=== PATIENT | female | born 1950 | race Caucasian/White ===

== ENCOUNTER 2022-03-14 10:00 | Outpatient (REF) | payer MEDICARE, SELFPAY ==
[2022-03-14 11:30] LABS: Anion Gap 11 (12-20); Blood Urea Nitrogen 21 mg/dL (9-16); Calcium 9.7 mg/dL (8.4-10.2); Carbon Dioxide 29 mmol/L (22-29); Chloride 103 mmol/L (96-108); Estimated Glomerular Filt Rate > 60; Glucose Random 104 mg/dL (60-115); Potassium 4.2 mmol/L (3.3-5.1); Sodium 139 mmol/L (135-145)
== END 2022-03-14 10:01 | disposition home or self-care (01) ==
LOC: HO.HMGCLDS 10:00
PROVIDERS: PCP Internal Medicine; Visit Provider Internal Medicine
DX: I10 Essential (primary) hypertension (principal); Z98.890 Other specified postprocedural states; Z92.89 Personal history of other medical treatment
CPT/HCPCS: 36415; 80048

== ENCOUNTER 2022-04-15 12:23 | Outpatient (REF) | payer MEDICARE, SELFPAY ==
--- NOTE | ~2022-04-15 | XR_ITS ---
EXAMINATION: BILATERAL KNEE STANDING AND LEFT KNEE. CLINICAL INFORMATION: Pain. COMPARISON: None TECHNIQUE: AP bilateral knee standing. Left knee 2 views. FINDINGS: AP bilateral knee: There is a total right knee prosthesis. There is severe loss of medial and mild to moderate loss of lateral compartment joint space left knee. There is mild periarticular spurring medial compartment left knee. The right knee is slightly higher in position compared to left knee. Left knee: There is moderate loss of medial compartment joint space left knee with moderate periarticular spurring. There is no abnormal joint effusion. No loose body seen. XR/XR knee LT 2V IMPRESSION: 1. Total right knee prosthesis in satisfactory alignment. There is severe loss of medial compartment joint space with periarticular spurring. 2. There is mild to moderate loss of lateral compartment joint space left knee. 3. Severe degenerative changes patellofemoral compartment with moderate periarticular spurring.
--- NOTE | ~2022-04-15 | XR_ITS ---
EXAMINATION: BILATERAL KNEE STANDING AND LEFT KNEE. CLINICAL INFORMATION: Pain. COMPARISON: None TECHNIQUE: AP bilateral knee standing. Left knee 2 views. FINDINGS: AP bilateral knee: There is a total right knee prosthesis. There is severe loss of medial and mild to moderate loss of lateral compartment joint space left knee. There is mild periarticular spurring medial compartment left knee. The right knee is slightly higher in position compared to left knee. Left knee: There is moderate loss of medial compartment joint space left knee with moderate periarticular spurring. There is no abnormal joint effusion. No loose body seen. XR/XR knee standing BI IMPRESSION: 1. Total right knee prosthesis in satisfactory alignment. There is severe loss of medial compartment joint space with periarticular spurring. 2. There is mild to moderate loss of lateral compartment joint space left knee. 3. Severe degenerative changes patellofemoral compartment with moderate periarticular spurring.
== END 2022-04-15 12:24 | disposition home or self-care (01) ==
LOC: HO.HOSX 12:23
PROVIDERS: Visit Provider Orthopaedic Surgery
DX: M17.12 Unilateral primary osteoarthritis, left knee (principal)
CPT/HCPCS: 73560; 73565; 99202

== ENCOUNTER → 2022-06-12 12:47 | Outpatient (BNVA) | payer MEDICARE, SELFPAY | PROVIDERS: PCP Internal Medicine; Visit Provider Orthopaedic Surgery | DX: Z01.812 Encounter for preprocedural laboratory examination (principal) ==

== ENCOUNTER 2022-06-19 12:33 | Outpatient (REF) | payer MEDICARE, SELFPAY ==
[2022-06-19 14:00] LABS: MANUAL DIFF FLAG NO
[2022-06-19 14:09] LABS: Basophils Percent Auto 0.3 % (0-2); Eosinophils Absolute Auto 0.1 X10*3/uL (0.0-0.4); Eosinophils Percent Auto 2.2 % (0-4); Hematocrit 42.8 % (37.0-47.0); Imm Gran Abs Auto 0.01 X10*3/uL (0.00-0.03); Imm Gran Pct Auto 0.2 % (0.0-0.4); Lymphocytes Percent Auto 33.7 % (20-40); Mean Corpuscular HGB Conc 32.7 g/dl (31.0-35.0); Mean Corpuscular Hemoglobin 27.3 pg (27.0-33.0); Mean Corpuscular Volume 83.4 fL (80.0-98.0); Mean Platelet Volume 10.4 fL (9.4-12.3); Monocytes Absolute Auto 0.6 X10*3/uL (0.1-1.2); Monocytes Percent Auto 9.4 % (2-11); Neutrophils Absolute Auto 3.2 x10*3/uL (2.0-8.3); Neutrophils Percent Auto 54.2 % (45-73); Platelet Count 334 X10*3/uL (160-400); Red Blood Count 5.13 X10*6/uL (4.20-5.50); Red Cell Distribution Width 13.7 % (11.0-16.0); White Blood Count 5.9 X10*3/uL (4.8-10.8)
[2022-06-19 14:35] LABS: Alanine Aminotransferase 16 U/L (0-31); Albumin Level 4.3 g/dL (3.5-5.0); Alkaline Phosphatase 93 U/L (39-117); Anion Gap 14 (12-20); Aspartate Amino Transferase 26 U/L (5-31); Bilirubin Total 0.6 mg/dL (0.0-1.0); Blood Urea Nitrogen 15 mg/dL (9-16); Calcium 9.9 mg/dL (8.4-10.2); Carbon Dioxide 28 mmol/L (22-29); Chloride 104 mmol/L (96-108); Cholesterol 201 mg/dL; Estimated Glomerular Filt Rate > 60; Glucose Fasting 89 mg/dL (60-99); HDL Cholesterol 74 mg/dL; LDL Cholesterol Calculated 118 mg/dl; Potassium 4.7 mmol/L (3.3-5.1); Sodium 141 mmol/L (135-145); Total Protein 7.4 g/dL (6.5-8.0); Triglycerides 48 mg/dL
[2022-06-19 14:51] LABS: TSH reflex Free T4 2.22 uIU/mL (0.32-4.0)
== END 2022-06-19 12:34 | disposition home or self-care (01) ==
LOC: HO.HMGCLDS 12:33
PROVIDERS: PCP Internal Medicine; Visit Provider Internal Medicine
DX: I10 Essential (primary) hypertension (principal); E55.9 Vitamin D deficiency, unspecified; Z78.0 Asymptomatic menopausal state
CPT/HCPCS: 36415; 80053; 80061; 82306; 84443; 85025

== ENCOUNTER → 2022-07-05 09:14 | Outpatient (REF) | payer MEDICARE, SELFPAY ==
--- NOTE | ~2022-07-05 | NM_ITS ---
Dobutamine Myocardial perfusion study Indication: Preoperative cardiovascular risk stratification Technique: The patient was brought in for an dobutamine perfusion study on 07/05/2022. Patient performed testing as per dobutamine protocol and was injected 35 mCi of sestamibi was given intravenously one target HR was achieved. Images were obtained using the SPECT gamma camera interlaced with the gating device. Images were obtained in supine position. Resting perfusion study was performed on 07/09/2022. Patient was administered 35 mCi of sestamibi intravenously at rest. Images were then obtained in supine position. Images obtained with and without CT attenuation. Total DLP 114 mGy-cm. Images were processed with the software and compared side to side in short axis, horizontal long axis and vertical long axis views. Findings: The stress perfusion study showed non attenuated images show mildly reduced uptake in a small area of apex of the LV myocardium. Remainder of the LV myocardium is normally perfused. Attenuation corrected images show minimally reduced uptake in the apex of the LV myocardium. The gated study shows normal LV systolic function with calculated LVEF of 60%. LV cavity is normal in size. The gated study shows normal systolic wall thickening and contraction of all segments. There is no transient ischemic dilation. Resting study shows non attenuated images show no change in perfusion pattern compared to stress perfusion study. Gating at rest reveals systolic wall motion with ejection fraction at 59%. The findings are consistent with normal myocardial perfusion. NM/NM hermes perf SPECT rest & str Impression: 1. Normal myocardial perfusion 2. Gated LVEF is 60% 3. Transient ischemic dilatation not present Stress EKG is negative for ischemia
--- NOTE | 2022-07-05 09:35 | CA_ITS ---
Acquisition Time: 2022-07-05 09:22:34 Total Exercise Time: 00:07:08 Test Indications: Abnormal ECG Medications: AMLODIPINE INDAPAMIDE Protocol: DOBUTAMINE Max HR: 130 BPM 86% of Pred: 150 BPM Max BP: 142/086 mmHG Max Work Load: 1.0 METS Pharmacological stress test with Dobutamine infusion to max ot 10mcg/kg/min, achieving 87% MPHR, without anginal symptoms, without arrythmia, with normotensive response to infusion, without EKG changes meeting criteria for ischemia. Nuclear images pending. Test reivewed [facility] Dr Rodgers Referred By: Eloisa Valdes Overread By: KULDEEP ROB
--- NOTE | 2022-07-05 15:00 | CA_ITS ---
Transthoracic Echocardiogram Patient (Last, First, Middle): Shannan Harvey L Gender: Female Date of : 1950 Age: 72 Procedure Date: 07/05/2022 Procedure Type: Transthoracic Echocardiogram Location: OP Height: 160.02 cm Weight: 90.72 kg BSA: 1.93 m2 Heart Rate: bpm BP: 130 / 88 mmHg Personal Care Aide: TO Referring MD: Eloisa Valdes MD Analyst Business Analysis: Margarito Rodgers MD Symptoms: R94.31 - Abnormal electrocardiogram [ECG] [EKG] Study Quality: Fair/Contrast ECG Rhythm: Sinus Conclusions: - 1. Normal LV systolic function with impaired relaxation filling pattern 2. Trivial aortic regurgitation 3. Normal RV systolic pressure 4. No gross pericardial effusion Findings Procedure Information Contrast agent, definity, is being given per protocol without apparent complications. Left Ventricle Normal left ventricular size, thickness, and systolic function. The visually estimated ejection fraction is between 60-65%. Spectral Doppler is indicative of an impaired relaxation filling pattern. E/E prime ratio is between 8 and 15 consistent with indeterminate filling pressures. Right Ventricle Normal right ventricular cavity size and systolic function. Atria The left atrium is normal in size. Interatrial shunt cannot be excluded. The right atrium is normal in size. Aortic Valve There is mild calcification of the aortic valve. There is no aortic valve stenosis. There is trace (trivial) aortic valve regurgitation. Mitral Valve Normal mitral valve structure and function. There is trace mitral valve regurgitation. There is no mitral valve stenosis. Pulmonic Valve The pulmonic valve is likely normal. Tricuspid Valve Normal tricuspid valve structure. There is trace tricuspid valve regurgitation. The right ventricular systolic pressure is normal. The right ventricular systolic pressure is 32 mmHg. Normal right atrial pressure. There is no evidence of pulmonary hypertension. Great Vessels All visible segments of the aorta are normal in size. The pulmonary artery was not well visualized. Venous The inferior vena cava is normal in size and collapses greater than 50% with inspiration. Pericardium/Pleural There is no evidence of pericardial effusion. Prior Study Comparison No prior study available for comparison. Measurements 2D Linear Measurements IVSd: 0.88 0.6-0.9/0.6-1.0 cm LVIDd: 4.55 3.9-5.3/4.2-5.9 cm LVIDd Index: 2.36 2.4-3.2/2.2-3.1 cm/m2 LVIDs: 2.68 2.0-3.6 cm LVPWd: 0.79 0.7-1.1 cm LA Diam: 3.10 2.7-3.8/3.0-4.0 cm LAIDs Index: 1.61 1.5-2.3 cm/m2 LV Mass: 152.42 67-162/88-224 g LV Mass Index: 78.98 43-95/49-115 g/m2 LVOT Diam: 2.00 3.0+(-)1.3 cm 2D Systolic Function EF 4C: 58.10 >55% Mitral Valve MV Pk E: 0.72 MV PK A: 0.95 MV Decel Time: 234.00 E/A: 0.80 E'Lateral: 7.51 E'Medial: 6.20 E/E' Med: 11.50 E/E' Lat: 9.50 PHT: 69.00 MVA PHT: 3.19 Decel [place]: 3.06 Aortic Valve AoV Pk Raúl: 1.77 AoV Mn Raúl: 1.18 AoV VTI: 0.33 AoV Pk Grad: 13.00 Aov Mn Grad: 6.00 KALANI Cont.VTI: 2.39 LVOT LVOT Pk Raúl: 1.17 LVOT Mn Raúl: 0.76 LVOT VTI: 0.25 LVOT Pk Grad: 5.00 LVOT Mn Grad: 3.00 LVOT Diam: 2.00 LVOT Area: 3.14 Diastolic Function MV Pk E: 0.72 MV Pk A: 0.95 E/A: 0.80 E'Medial: 6.20 E/E' Med: 11.50 E' Laterial: 7.51 E/E' Lat: 9.50 Right Ventricle TAPSE (mm): 18.80 TVS' Raúl: 12.20 Tricuspid Valve TR Pk Raúl: 2.67 TR Pk Grad: 29.00 RA Press: 3.00 RVSP: 32.00 Great Vessels Aorta Sinus of Valsalva: 2.93 2.0-3.[address] [place]: 2.30 1.7-3.4 cm Ao Asc: 3.20 2.1-3.4 cm Updated in Other Vendor System with Status of Final Margarito Rodgers MD electronically signed on 07/06/2022 12:51:31 PM with status of Final
== END ==
LOC: HO.CARD 09:14
PROVIDERS: PCP Internal Medicine; Visit Provider Internal Medicine
DX: Z01.818 Encounter for other preprocedural examination (principal); R94.31 Abnormal electrocardiogram [ECG] [EKG]
CPT/HCPCS: 78452; 93017; 93306; A9500; J1250; Q9957

== ENCOUNTER 2022-07-11 12:38 | Outpatient (REF) | payer MEDICARE, SELFPAY ==
--- NOTE | ~2022-07-11 | XR_ITS ---
EXAMINATION: X-ray right knee CLINICAL INFORMATION: Pain COMPARISON: X-ray 04/15/2022 TECHNIQUE: 1 lateral radiograph right knee FINDINGS: Total knee arthroplasty present. On the single view, the arthroplasty components appear well seated. No findings to suggest hardware failure. No acute fracture. No significant joint effusion. XR/XR knee RT 1V IMPRESSION: Status post total knee arthroplasty. No acute findings seen.
== END 2022-07-11 12:39 | disposition home or self-care (01) ==
LOC: HO.HOSX 12:38
PROVIDERS: PCP Internal Medicine; Visit Provider Physician Assistant
DX: Z01.818 Encounter for other preprocedural examination (principal); M25.561 Pain in right knee; M17.12 Unilateral primary osteoarthritis, left knee; Z96.651 Presence of right artificial knee joint; Z79.899 Other long term (current) drug therapy
CPT/HCPCS: 73560; 99212

== ENCOUNTER → 2022-07-16 | Day surgery (SDC) | payer MEDICARE, SELFPAY ==
[2022-07-09 12:00] VITALS: BP 136/65; PULSE 65; RESP 16; O2SAT 96; BMI 36.1
--- NOTE | 2022-07-09 12:23 | HO.ANESPROP2 ---
HPI - Anesthesia Eval Consult details Narrative: Cx'd DOS d/t Covid + 72yo F for Left Total Knee Replacement 07/16/22 [facility] Active Problems Active Problems: All Active Problems (Updated 07/03/22 @ 14:11 by Eloisa Valdes MD) Knee osteoarthritis (Acute) History of uterine prolapse (Acute) Hx of screening mammography (Acute) Hx of colonoscopy (Acute) Postmenopausal (Acute) Vitamin D deficiency (Acute) Osteoarthritis of left knee (Acute) Abnormal EKG (Acute) Pre-op evaluation (Acute) Hypertension (Acute) Past Medical History Medical History Carpal tunnel syndrome Hypertension Family History Family History Father No problems noted. Mother Colon cancer Family history of problems with anesthesia: No Surgical History Surgical History History of total right knee replacement Hx of colonoscopy Hx of hysterectomy S/P right rotator cuff repair Status post carpal tunnel release of both wrists History of Problems with Anesthesia: No Social History Social History Household Members Other:: lives alone, 3 adults sons, works partime Housing: House Are you a primary senior resident care director to a significant other at home: No Do you presently have visiting nurse or other home services: No Patient Tobacco Use Status: Never used Tobacco e-Cigarette/Vaping Use: Never Used service: No Current occupational status: retired Cognitive needs: No Hearing needs: No Vision needs: Yes Narrative Narrative: No recent illness No CP/SOB Meds Allergies Allergy/AdvReac Type Severity Reaction Status Date / Time Seasonal Allergies Allergy Mild Sneezing, Verified 07/11/22 12:45 coughing Home Medications Medication Instructions Recorded Confirmed Last Taken Type cholecalciferol (vitamin D3) 50 50 mcg PO DAILY 07/09/22 07/11/22 07/15/22 History mcg (2,000 unit) capsule (Vitamin D3) indapamide 1.25 mg tablet 1.25 mg PO DAILY 07/16/22 07/16/22 07/15/22 History Exam Exam Date and Time: July 09, 2022 1223 Height,Weight and Vital Signs: Height 5 ft 3 in Weight 92.4 kg Last Vital Signs Pulse 65 07/09/22 12:00 Resp 16 07/09/22 12:00 BP 136/65 07/09/22 12:00 Pulse Ox 96 07/09/22 12:00 O2 Del Method Room Air 07/09/22 12:00 Narrative Narrative: EKG 06/2022 SB @ 59 ? anterior infarct ECHO 06/2022 Conclusions: - 1. Normal LV systolic function with impaired relaxation filling pattern? 2. Trivial aortic regurgitation? 3. Normal RV systolic pressure ? 4. No gross pericardial effusion ? NM hermes perf SPECT rest & str 06/2022 Impression: ? 1.? Normal myocardial perfusion 2.? Gated LVEF is 60% 3. Transient ischemic dilatation not present ? Stress EKG is negative for ischemia Airway Mallampati Class: II TM Dist: >3cm Neck ROM: Full Denture: Upper Partial: Lower Heart: RRR Lungs: CTA Assessment and Plan Assessment Anesthesia Assessment: Anesthesia Plan Discussed and PAT Visit Final Anesthetic Review Family History of Problems with Anesthesia: No History of Problems with Anesthesia: No
[2022-07-09 15:00] LABS: MRSA Nasal PCR NEGATIVE (Negative); SA Nasal PCR NEGATIVE (Negative)
[2022-07-16 06:15] VITALS: BP 159/51; PULSE 69; RESP 20; TEMP 36.3; O2SAT 97
[2022-07-16 06:29] LABS: Hematocrit 43.5 % (37.0-47.0); Hemoglobin 14.1 g/dl (12.0-16.0)
[2022-07-16 06:33] LABS: COVID-19 Test Positive (Negative); IDNOW Serial# 16C4AD1C
[2022-07-16] MEDS: Lactated Ringers 1,000 ML 100 ML IVCONT (06:42)
--- NOTE | 2022-07-16 07:00 | PC.NURSE ---
pt positive covid procedure cancelled per dr muñoz and dr carranza pt aware of new careplan
--- NOTE | 2022-07-16 07:02 | PHA.MEDREC ---
Pharmacy Consult ? Medication Reconciliation Pharmacy has completed the medication reconciliation. Reviewed med rec done by nursing
== END ==
LOC: HO.SSSA 07:45 → HO.SSS 16:33
PROVIDERS: Physician Assistant; PCP Internal Medicine; Visit Provider Orthopaedic Surgery
DX: M17.12 Unilateral primary osteoarthritis, left knee (principal); Z53.09 Procedure and treatment not carried out because of other contraindication; U07.1 COVID-19; Z20.822 Contact with and (suspected) exposure to COVID-19
CPT/HCPCS: 36415; 85014; 85018; 86850; 86900; 86901; 87635; 87640; 87641; J0690

== ENCOUNTER 2022-07-30 06:25 | Inpatient (IN) | payer MEDICARE, SELFPAY ==
--- NOTE | 2022-07-29 09:14 | HO.ANESPROP2 ---
Documented by User: Claire Mckeon NP 07/29/22 09:15 HPI - Anesthesia Eval Consult details Narrative: 72yo F for Left Total Knee Replacement 07/16/22 PCP cleared Previously cx'd d/t COVID+ [facility] Active Problems Active Problems: All Active Problems (Updated 07/03/22 @ 14:11 by Eloisa Valdes MD) Knee osteoarthritis (Acute) History of uterine prolapse (Acute) Hx of screening mammography (Acute) Hx of colonoscopy (Acute) Postmenopausal (Acute) Vitamin D deficiency (Acute) Osteoarthritis of left knee (Acute) Abnormal EKG (Acute) Pre-op evaluation (Acute) Hypertension (Acute) Past Medical History Medical History Carpal tunnel syndrome Hypertension Family History Family History Father No problems noted. Mother Colon cancer Family history of problems with anesthesia: No Surgical History Surgical History History of total right knee replacement Hx of colonoscopy Hx of hysterectomy S/P right rotator cuff repair Status post carpal tunnel release of both wrists History of Problems with Anesthesia: No Social History Social History Household Members Other:: lives alone, 3 adults sons, works partime Housing: House Are you a primary healthcare administration intern to a significant other at home: No Do you presently have visiting nurse or other home services: No Patient Tobacco Use Status: Never used Tobacco e-Cigarette/Vaping Use: Never Used Use of substances other than those prescribed or required for medical reasons: No Are you DNR?: No Advance Directives: No Advance Directives Information Provided: No Advance Directives on File: No service: No Current occupational status: retired Cognitive needs: No Hearing needs: No Vision needs: Yes Meds Allergies Allergy/AdvReac Type Severity Reaction Status Date / Time Seasonal Allergies Allergy Mild Sneezing, Verified 07/11/22 12:45 coughing Home Medications Medication Instructions Recorded Confirmed Last Taken Type cholecalciferol (vitamin D3) 50 50 mcg PO DAILY 07/09/22 07/30/22 07/29/22 History mcg (2,000 unit) capsule (Vitamin D3) indapamide 1.25 mg tablet 1.25 mg PO DAILY 07/16/22 07/30/22 07/29/22 History Exam Exam Date and Time: July 29, 2022913 Height,Weight and Vital Signs: Height 5 ft 3 in Weight 92.4 kg Last Vital Signs Pulse 65 07/09/22 12:00 Resp 16 07/09/22 12:00 BP 136/65 07/09/22 12:00 Pulse Ox 96 07/09/22 12:00 O2 Del Method Room Air 07/09/22 12:00 Pertinent Lab Results Pertinent Lab Results: Laboratory Tests 06/19/22 06/19/22 07/16/22 12:44 12:44 06:23 WBC 5.9 Hgb 14.1 Hct 43.5 Plt Count 334 Sodium 141 Potassium 4.7 Chloride 104 Carbon Dioxide 28 BUN 15 Creatinine 0.87 Narrative Narrative: EKG 06/2022 SB @ 59 ? anterior infarct ECHO 06/2022 Conclusions: - 1. Normal LV systolic function with impaired relaxation filling pattern? 2. Trivial aortic regurgitation? 3. Normal RV systolic pressure ? 4. No gross pericardial effusion ? NM hermes perf SPECT rest & str 06/2022 Impression: ? 1.? Normal myocardial perfusion 2.? Gated LVEF is 60% 3. Transient ischemic dilatation not present ? Stress EKG is negative for ischemia Airway Mallampati Class: II TM Dist: >3cm Neck ROM: Full Denture: Upper Partial: Lower Heart: RRR Lungs: CTA Assessment and Plan Assessment Anesthesia Assessment: Chart Reviewed Final Anesthetic Review Family History of Problems with Anesthesia: No History of Problems with Anesthesia: No Documented by User: Alysa Orellana MD 07/30/22 08:47 [facility] Past Medical History Medical History Carpal tunnel syndrome Hypertension Family History Family History Father No problems noted. Mother Colon cancer Surgical History Surgical History History of total right knee replacement Hx of colonoscopy Hx of hysterectomy S/P right rotator cuff repair Status post carpal tunnel release of both wrists Social History Social History Household Members Other:: lives alone, 3 adults sons, works partime Housing: House Are you a primary healthcare administration intern to a significant other at home: No Do you presently have visiting nurse or other home services: No Patient Tobacco Use Status: Never used Tobacco e-Cigarette/Vaping Use: Never Used Use of substances other than those prescribed or required for medical reasons: No Are you DNR?: No Advance Directives: No Advance Directives Information Provided: No Advance Directives on File: No service: No Current occupational status: retired Cognitive needs: No Hearing needs: No Vision needs: Yes Meds Allergies Allergy/AdvReac Type Severity Reaction Status Date / Time Seasonal Allergies Allergy Mild Sneezing, Verified 07/11/22 12:45 coughing Home Medications Medication Instructions Recorded Confirmed Last Taken Type cholecalciferol (vitamin D3) 50 50 mcg PO DAILY 07/09/22 07/30/22 07/29/22 History mcg (2,000 unit) capsule (Vitamin D3) indapamide 1.25 mg tablet 1.25 mg PO DAILY 07/16/22 07/30/22 07/29/22 History Assessment and Plan Final Anesthetic Review NPO: Yes ASA Class: III Final Preanesthetic Review: No Changes in Pt Med Stat, Meds/Allgs Chart Reviewed, Consent Obtained/Reviewed and Anes Risks/Benef Reviewed Patient Risk: Intermediate Procedure Risk: Intermediate Anesthetic Plan Anesthetic Plan: Spinal Disposition: Standard PACU
[2022-07-30] VITALS (13 sets, daily range): BP systolic 108–144; BP diastolic 52–80; PULSE 53–79; RESP 15–20; TEMP 36.1–36.9; O2SAT 93–98; BMI 35.4
--- NOTE | ~2022-07-30 | XR_ITS ---
EXAMINATION: XR KNEE, LEFT CLINICAL INFORMATION: Left knee replacement COMPARISON: Previous x-ray March 2022 TECHNIQUE: 2 views of the left knee. FINDINGS: There is a 3 component left knee replacement in satisfactory position. No fracture or dislocation. There are postoperative changes to the soft tissues. XR/XR knee LT 2V IMPRESSION: Satisfactory appearance of left knee replacement.
[2022-07-30] MEDS: Lactated Ringers 1,000 ML 100 ML IVCONT ×3 (06:41→20:26)
[2022-07-30 06:49] LABS: Hematocrit 38.9 % (37.0-47.0); Hemoglobin 12.9 g/dl (12.0-16.0)
--- NOTE | 2022-07-30 07:19 | PHA.MEDREC ---
Pharmacy Consult ? Medication Reconciliation Pharmacy has completed the medication reconciliation. Completed by RN reviewed by pharmacy Dale
--- NOTE | 2022-07-30 09:50 | PM.OP ---
Brief Operative Note Date of Service: 07/30/22 Pre-op diagnosis: Left knee OA Post-op diagnosis: same Procedure: Left TKA Implants: Rossi Triathlon posterior stabilized cemented 06/26/15ps/32a Surgeon: Naveen Villa MD Anesthesia: GETA and regional Was an Camera Storage Clerk used for this Procedure?: Yes Camera Storage Clerk: Naomy Hall Estimated blood loss (mL): 175 IV fluids (mL): 1,000 Pathology: other Condition: stable Disposition: PACU
[2022-07-30] MEDS: HYDROmorphone HCl 0.5 MG/0.5 ML SYRINGE 0.25 MG IVPUSH ×3 (11:54→21:31)
[2022-07-30] MEDS: Acetaminophen 325 MG TABLET 650 MG PO ×2 (11:55→21:30)
[2022-07-30] MEDS: oxyCODONE HCl Immed Release 5 MG TABLET PO ×2 (12:50→13:57)
--- NOTE | 2022-07-30 13:01 | HO.PM.IMCN ---
History of Present Illness Data of Consult Service Date: 07/30/22 Requesting physician: Naomy Hall Primary Care Provider: Eloisa Valdes MD HPI Reason for consult: medical management 72-year-old female with history of hypertension admitted to Orthopedic surgery for management of osteoarthritis of the left knee s/p TKA with consult placed to Hospital Medicine for medical management. She reports taking her amlodipine 5 mg this morning but did not take her indapamide at the recommendation of her surgeon. Blood pressures have been stable postoperatively, no hypotension. She is complaining of pain in the knee but has no other complaints at this time. She reports drinking alcohol occasionally, no cigarette smoking, no illicit drug use. No other complaints at this time. Review of Systems Review of Systems: General: No fevers, malaise, unintentional weight loss HEENT: No blurred vision, diplopia. No sore throat, nasal congestion, rhinorrhea, sinus pain, ear pain Cardiovascular: No chest pain, palpitations, or leg edema Respiratory: No shortness of breath, wheezing, cough GI: No abdominal pain, nausea, vomiting, diarrhea, constipation, melena, hematochezia : No dysuria, hematuria, increased urinary frequency, decreased urinary output MSK: No myalgia, back pain. +left knee pain Neuro: No headaches, weakness, paresthesias Skin: No rashes or lesions [facility] Medical History Carpal tunnel syndrome Hypertension Family History Father No problems noted. Mother Colon cancer Surgical History History of total right knee replacement Hx of colonoscopy Hx of hysterectomy S/P right rotator cuff repair Status post carpal tunnel release of both wrists Social History Household Members Other:: lives alone, 3 adults sons, works partime Housing: House Are you a primary client care specialist to a significant other at home: No Do you presently have visiting nurse or other home services: No Patient Tobacco Use Status: Never used Tobacco e-Cigarette/Vaping Use: Never Used Use of substances other than those prescribed or required for medical reasons: No Are you DNR?: No Advance Directives: No Advance Directives Information Provided: No Advance Directives on File: No service: No Current occupational status: retired Cognitive needs: No Hearing needs: No Vision needs: Yes Meds Allergies Allergy/AdvReac Type Severity Reaction Status Date / Time Seasonal Allergies Allergy Mild Sneezing, Verified 07/11/22 12:45 coughing Active Medications: Current Medications Acetaminophen (Acetaminophen 325 Mg Tablet) 650 mg PO Q6H PRN PRN Reason: Pain, Mild (Pain Scale 1-3) Last Admin: 07/30/22 11:55 Dose: 650 mg Aspirin (Aspirin 325 Mg Tablet) 325 mg PO BID [facility] Celecoxib (Celecoxib 200 Mg Capsule) 200 mg PO BID [facility] Docusate Sodium (Docusate Sodium 100 Mg Capsule) 100 mg PO BID [facility] Hydromorphone HCl (Hydromorphone Hcl 0.5 Mg/0.5 Ml Syringe) 0.25 mg IVPUSH Q4H PRN; Protocol PRN Reason: Pain, Severe (Pain Scale 7-10) Last Admin: 07/30/22 11:54 Dose: 0.25 mg Lactated Ringer's (Lr) 1,000 mls @ 100 mls/hr IVCONT .Q10H JOSEPH Stop: 07/31/22 10:06 Last Admin: 07/30/22 11:54 Dose: 100 mls/hr Cefazolin Sodium/Dextrose (Ancef) 2 gm in 50 mls @ 100 mls/hr IV POSTOP ONE Stop: 07/30/22 14:29 Ondansetron HCl (Ondansetron Hcl 4 Mg/2 Ml Vial) 4 mg IVPUSH Q8H PRN PRN Reason: Nausea and Vomiting Oxycodone HCl (Oxycodone Hcl Immed Release 5 Mg Tablet) 5 mg PO Q4H PRN PRN Reason: Pain, Moderate(Pain Scale 4-6) Last Admin: 07/30/22 12:50 Dose: 5 mg Oxycodone HCl (Oxycodone Hcl Er 10 Mg Tab.Er.12h) 10 mg PO BID [facility] Sodium Chloride (0.9 % Sodium Chloride Flush 3 Ml Syringe) 3 ml IVFLUSH QSHIFT [facility] Home Medications Medication Instructions Recorded Confirmed Last Taken Type cholecalciferol (vitamin D3) 50 50 mcg PO DAILY 0407/30/22 07/29/22 History mcg (2,000 unit) capsule (Vitamin D3) indapamide 1.25 mg tablet 1.25 mg PO DAILY 07/16/22 07/30/22 07/29/22 History Physical Exam Vital Signs and Narrative: Vital Signs: Last Vital Signs Temp 97 F 07/30/22 11:29 Pulse 73 07/30/22 11:29 Resp 18 07/30/22 11:29 BP 137/62 07/30/22 11:29 Pulse Ox 95 07/30/22 11:29 O2 Del Method Room Air 07/30/22 11:29 BMI result Body Mass Index 35.4 Constitutional - Awake and Alert, No apparent distress Eyes - PERRLA, EOMI Cardiovascular - S1S2, RRR, No edema Respiratory - Normal lung expansion, Normal respiratory effort, No respiratory distress, CTA bilaterally Gastrointestinal - NT / ND; +BS; No rebound or guarding Extremities - no calf tenderness bilaterally, no swelling Skin - Warm/Dry Neurological - Alert & oriented x3 Psychological - Appropriate affect Results Labs 07/30/22 06:32 Labs: Laboratory Results - last 24 hr 07/30/22 06:32 Blood Type O Positive Antibody Screen NEGATIVE Imaging Radiologist's Impressions: Impressions Knee X-Ray 07/30/22 10:27 IMPRESSION: Satisfactory appearance of left knee replacement. Assessment and Plan (1) Knee osteoarthritis: Status: Acute Plan 72-year-old female with history of hypertension admitted to Orthopedic surgery for management of osteoarthritis of the left knee s/p TKA with consult placed to Hospital Medicine for medical management. #Left knee osteoarthritis s/p left TKA POD 0 -plan per orthopedic surgery #HTN- bps reasonably controlled -Continue amlodipine. Resume indapamide on dc -monitor bps Thank you for allowing me to participate in this consult. Signing off at this time. Please do not hesitate to call for further questions. Time Spent With Patient Time: Total time managing care of this patient today ____ minutes.
[2022-07-30] MEDS: ceFAZolin Sodium/Dextrose,Iso 2 GM/50 ML PIGGYBACK IV (13:59)
[2022-07-30] MEDS: Docusate Sodium 100 MG CAPSULE PO (20:25)
[2022-07-30] MEDS: oxyCODONE HCl ER 10 MG TAB.ER.12H PO (20:25)
[2022-07-30] MEDS: Celecoxib 200 MG CAPSULE PO (20:25)
[2022-07-30] MEDS: 0.9 % Sodium Chloride Flush 3 ML SYRINGE IVFLUSH (20:26)
[2022-07-31 03:27] VITALS: BP 142/65; PULSE 65; RESP 18; TEMP 36.5; O2SAT 93
[2022-07-31] MEDS: HYDROmorphone HCl 0.5 MG/0.5 ML SYRINGE 0.25 MG IVPUSH (05:15)
[2022-07-31 06:15] LABS: MANUAL DIFF FLAG NO
[2022-07-31 06:24] LABS: Basophils Percent Auto 0.1 % (0-2); Hematocrit 33.1 % (37.0-47.0); Hemoglobin 10.9 g/dl (12.0-16.0); Imm Gran Abs Auto 0.05 X10*3/uL (0.00-0.03); Imm Gran Pct Auto 0.4 % (0.0-0.4); Lymphocytes Absolute Auto 1.4 X10*3/uL (1.2-4.9); Lymphocytes Percent Auto 12.8 % (20-40); Mean Corpuscular HGB Conc 32.9 g/dl (31.0-35.0); Mean Corpuscular Hemoglobin 27.3 pg (27.0-33.0); Mean Platelet Volume 9.7 fL (9.4-12.3); Monocytes Absolute Auto 1.1 X10*3/uL (0.1-1.2); Monocytes Percent Auto 10.3 % (2-11); Neutrophils Absolute Auto 8.5 x10*3/uL (2.0-8.3); Neutrophils Percent Auto 76.4 % (45-73); Platelet Count 242 X10*3/uL (160-400); Red Blood Count 3.99 X10*6/uL (4.20-5.50); Red Cell Distribution Width 13.8 % (11.0-16.0); White Blood Count 11.1 X10*3/uL (4.8-10.8)
[2022-07-31] MEDS: oxyCODONE HCl Immed Release 5 MG TABLET 10 MG PO ×3 (06:25→17:04)
[2022-07-31 06:40] LABS: Anion Gap 11 (12-20); Blood Urea Nitrogen 17 mg/dL (9-16); Calcium 8.9 mg/dL (8.4-10.2); Carbon Dioxide 26 mmol/L (22-29); Chloride 105 mmol/L (96-108); Creatinine Clr Calc Pharmacy 73.6; Estimated Glomerular Filt Rate > 60; Glucose Fasting 123 mg/dL (60-99); Potassium 4.1 mmol/L (3.3-5.1); Sodium 138 mmol/L (135-145)
--- NOTE | 2022-07-31 07:39 | PM.PNORT ---
Subjective Subjective Date of Service: 07/31/22 Interval history: POD1 s/p LTKA. Patient is resting in bed comfortably. No overnight events. Pain is managed. No additonal complaints. Physical Exam Vital Signs: Vital Signs: Last Vital Signs Temp 97.7 F 07/31/22 03:27 Pulse 65 07/31/22 03:27 Resp 18 07/31/22 03:27 BP 142/65 H 07/31/22 03:27 Pulse Ox 93 07/31/22 03:27 O2 Del Method Room Air 07/31/22 03:27 BMI result Body Mass Index 35.4 Const: General: cooperative, healthy appearing and no acute distress Resp: Effort & Inspection: normal respiratory effort and able to speak in complete sentences Cardio: Rate: regular rate Peripheral pulses: Peripheral pulses 2+ throughout GI: Palpation (GI): Soft to palpation Skin: Lesions: no lesions Rashes: no rashes Extrem: Other: Left knee Aquacel is c/d/i. Able to dorsi/plantar felx. NVI. Procedures Date of Service Date of Service: 07/31/22 Progress Note: A&P Assessment and plan (1) Status post total knee replacement, left: Status: Acute Assessment and Plan: Continue pain mgmnt Begin ASA for dvt ppx Continue PT for LTKA - WBAT Dispo planning- PT, pain mgmnt Time Spent With Patient Time: Total time managing care of this patient today ____ minutes. Quality Stroke Does the patient have a stroke diagnosis?: No VTE Prior VTE?: No VTE Risk Level:: Medical - moderate - high VTE Device Contraindication: N/A - Device Ordered VTE Drug Contraindication: N/A - Med Ordered
[2022-07-31 07:45] VITALS: BP 115/61; PULSE 59; RESP 16; TEMP 36.2
[2022-07-31] MEDS: Aspirin 325 MG TABLET PO ×2 (07:53→21:33)
[2022-07-31] MEDS: oxyCODONE HCl ER 10 MG TAB.ER.12H PO ×2 (07:53→21:33)
[2022-07-31] MEDS: Celecoxib 200 MG CAPSULE PO ×2 (07:53→21:33)
[2022-07-31] MEDS: Docusate Sodium 100 MG CAPSULE PO ×2 (07:53→21:33)
[2022-07-31] MEDS: amLODIPine Besylate 5 MG TABLET PO (07:54)
[2022-07-31] MEDS: 0.9 % Sodium Chloride Flush 3 ML SYRINGE IVFLUSH ×2 (07:55→21:35)
[2022-07-31] MEDS: Lactated Ringers 1,000 ML 100 ML IVCONT (07:56)
--- NOTE | 2022-07-31 09:09 | MHC.CM.PN ---
IMM 07/31/22 Female s/p TKA. She lives by herself. She used a cane prn for the other leg. She is independent with all functional mobility. VAXXED x 4. A copy of the pts HCP has been requested. A referral has been sent to [facility]. DP home with [facility] PT has arranged for transportation.
--- NOTE | 2022-07-31 10:50 | HO.POSTANES ---
Post Anesthesia Evaluation Post Anesthesia Evaluation Vital Signs: Vital Signs Temp Pulse Resp BP Pulse Ox O2 Del Method 07/31/22 07:45 97.1 F 59 16 115/61 Room Air 07/31/22 03:27 97.7 F 65 18 142/65 H 93 Room Air Anesthesia: Spinal and Nerve Block Mental Status: Awake Pain Control: Satisfactory Nausea/Vomiting: None Hydration: Adequate Anesthesia-Related Issues: No Anes. Related Issues
[2022-07-31] MEDS: Acetaminophen 325 MG TABLET 650 MG PO (12:56)
[2022-07-31 15:13] VITALS: BP 122/60; PULSE 70; RESP 18; TEMP 36; O2SAT 93
[2022-07-31 19:38] VITALS: BP 118/59; PULSE 71; RESP 17; TEMP 36.3; O2SAT 94
[2022-08-01 03:52] VITALS: BP 123/61; PULSE 70; RESP 17; TEMP 36.2; O2SAT 95
[2022-08-01] MEDS: oxyCODONE HCl Immed Release 5 MG TABLET 10 MG PO (06:29)
[2022-08-01 06:34] LABS: MANUAL DIFF FLAG NO
[2022-08-01 06:40] LABS: Basophils Percent Auto 0.2 % (0-2); Eosinophils Absolute Auto 0.2 X10*3/uL (0.0-0.4); Eosinophils Percent Auto 2.2 % (0-4); Hematocrit 31.2 % (37.0-47.0); Imm Gran Abs Auto 0.03 X10*3/uL (0.00-0.03); Imm Gran Pct Auto 0.3 % (0.0-0.4); Lymphocytes Absolute Auto 2.2 X10*3/uL (1.2-4.9); Lymphocytes Percent Auto 22.1 % (20-40); Mean Corpuscular HGB Conc 32.1 g/dl (31.0-35.0); Mean Corpuscular Hemoglobin 27.3 pg (27.0-33.0); Mean Corpuscular Volume 85.2 fL (80.0-98.0); Mean Platelet Volume 9.9 fL (9.4-12.3); Monocytes Absolute Auto 1.2 X10*3/uL (0.1-1.2); Neutrophils Absolute Auto 6.3 x10*3/uL (2.0-8.3); Neutrophils Percent Auto 63.2 % (45-73); Platelet Count 210 X10*3/uL (160-400); Red Blood Count 3.66 X10*6/uL (4.20-5.50); Red Cell Distribution Width 14.3 % (11.0-16.0)
[2022-08-01 07:00] LABS: Anion Gap 8 (12-20); Blood Urea Nitrogen 20 mg/dL (9-16); Calcium 8.7 mg/dL (8.4-10.2); Carbon Dioxide 30 mmol/L (22-29); Chloride 106 mmol/L (96-108); Creatinine Clr Calc Pharmacy 75.6; Estimated Glomerular Filt Rate > 60; Glucose Fasting 103 mg/dL (60-99); Sodium 140 mmol/L (135-145)
[2022-08-01 07:36] VITALS: BP 110/56; PULSE 70; RESP 20; TEMP 36.4; O2SAT 90
[2022-08-01] MEDS: Celecoxib 200 MG CAPSULE PO (08:26)
[2022-08-01] MEDS: amLODIPine Besylate 5 MG TABLET PO (08:27)
[2022-08-01] MEDS: Aspirin 325 MG TABLET PO (08:27)
[2022-08-01] MEDS: 0.9 % Sodium Chloride Flush 3 ML SYRINGE IVFLUSH (08:27)
[2022-08-01] MEDS: Docusate Sodium 100 MG CAPSULE PO (08:28)
--- NOTE | 2022-08-01 09:04 | P.DS_ITS ---
DS: Providers Provider Date of Service: 08/11/22 Date of admission: 07/30/22 06:25 Primary care physician: Eloisa Valdes MD Consults: 07/30/22 11:29 Consult to Hospitalist Routine Comment: Consulting Provider: Hospitalist Reason For Exam: HTN DS: Diagnosis Discharge Diagnosis (1) Status post total knee replacement, left: Status: Acute DS: Summary Hospital Course Hospital Course: The patient underwent a successful left total knee arthroplasty on 07/30/22, was transferred to PACU and then to the floor to recover. During their stay, their vitals were stable, afebrile at 97.5. Labs were unremarkable, H/H 10.0/31.2 . POD 1 he was started on ASA 325mg tabs po bid for DVT ppx, they also received Physical Therapy services twice a day. Physical therapy should include gait training, ROM to tolerance and quad strength. He is WBAT. Prior to discharge, his dressing was changed, incision clean dry and intact, new Aquacel dressing applied. The Aquacel dressing shoulder remain intact and dry at all times. Any concerns with the dressing, please contact orthopedic office. No showering. The plan is to be discharged home with [facility] Time Spent with Patient Time attestation: Total time managing care of this patient today ____ minutes. Discharge coordination time: Less than 30 minutes Quality: Safe Use of Opioids Does Pt have an Active Cancer Diagnosis on the Problem List?: No Quality: Stroke Does the patient have a stroke diagnosis?: No Physical Exam Vital Signs: Vital Signs: Last Vital Signs Temp 97.5 F 08/01/22 07:36 Pulse 70 08/01/22 07:36 Resp 20 08/01/22 07:36 BP 110/56 L 08/01/22 07:36 Pulse Ox 90 L 08/01/22 07:36 O2 Del Method Room Air 08/01/22 07:36 BMI result Body Mass Index 35.4 Const: General: cooperative, healthy appearing and no acute distress Resp: Effort & Inspection: normal respiratory effort and able to speak in complete sentences Cardio: Rate: regular rate Peripheral pulses: Peripheral pulses 2+ throughout GI: Palpation (GI): Soft to palpation Skin: General skin exam: no rashes or lesions noted Lesions: no lesions Rashes: no rashes Extrem: Other: Left knee Aquacel is c/d/i. Able to dorsi/plantar felx. NVI. DS: Data Data Completed and Pending Completed studies during hospitalization [Text1]: Pending at discharge 07/30/22 09:23 Surgical [PTH] Routine Labs on day of discharge: Laboratory Results - last 24 hr 08/01/22 08/01/22 06:12 06:12 WBC 10.0 RBC 3.66 L Hgb 10.0 L Hct 31.2 L MCV 85.2 MCH 27.3 MCHC 32.1 RDW 14.3 Plt Count 210 MPV 9.9 Immature Gran % (Auto) 0.3 Neut % (Auto) 63.2 Lymph % (Auto) 22.1 Sutter % (Auto) 12.0 H Eos % (Auto) 2.2 Baso % (Auto) 0.2 Lymph # (Auto) 2.2 Sutter # (Auto) 1.2 Eos # (Auto) 0.2 Baso # (Auto) 0.0 Abs Immat Gran (auto) 0.03 Absolute Neuts (auto) 6.3 Absolute Nucleated RBC 0.000 Nucleated RBC % (auto) 0.0 Sodium 140 Potassium 4.0 Chloride 106 Carbon Dioxide 30 H Anion Gap 8 L BUN 20 H Creatinine 0.74 Estim Creat Clear Calc 75.6 Estimated GFR > 60 Fasting Glucose 103 H Calcium 8.7 Discharge Plan Discharge Anticipated Discharge Date/Time: 08/01/22 09:01 Patient Disposition: Home Health Service Discharge Diagnosis: LT TKA Referrals: [facility] [Outside] - 1 Week Naomy Hall PA-C [Physician [employer] Tech] - 2 Weeks (08/15/22 1:30 [facility] [place] Orthopedic Surgeons Naomy Hall PA-C) Discharge Medications: New celecoxib 200 mg Capsule 200 mg PO BID 30 Days Qty: 60 0RF acetaminophen 325 mg Tablet 650 mg PO Q6H PRN (Reason: Pain, Mild (Pain Scale 1-3)) 30 Days Qty: 240 0RF aspirin 325 mg Tablet 325 mg PO BID 42 Days Qty: 84 0RF oxycodone 5 mg Tablet 5 mg PO Q4H PRN (Reason: Pain, Moderate(Pain Scale 4-6)) 7 Days Qty: 42 0RF Rx Instructions: Partial Fill upon patient request. docusate sodium 100 mg Capsule 100 mg PO BID 14 Days Qty: 28 0RF Continued cholecalciferol (vitamin D3) [Vitamin D3] 50 mcg (2,000 unit) Capsule 50 mcg PO DAILY indapamide 1.25 mg tablet 1.25 mg PO DAILY amlodipine 5 mg tablet 5 mg PO DAILY Qty: 90 3RF Discharge Orders: Discharge Order (Routine); Ordered 08/01/22 Ordered By: Naomy Hall Diet: Regular diet Activity on Discharge: Use cane or walker Stand Alone Forms: Patient Portal Discharge page Care Plan Goals: Restore function of joint Health Concerns: none Plan of Treatment: Physical Therapy Pain management DVT prophylaxis Assessment: Physical Therapy for Total knee arthroplasty: WBAT, gait training, ROM 0-12, quad strength * Limit stair climbing * No showering, no tub bath-keep dressing clean, dry and intact * No driving x6 weeks * Continue Aspirin twice a day x 6 weeks * Follow up with [facility] Orthopedics in 2 weeks: 08/15/2312:30[facility] SurgeonsNaomy Hall PA-C * --you will also have your first out patient PT eval on the day of your post op appt-so please plan on being in the office that day for an extended period of time. Discharge Date/Time: 08/01/22 12:45
--- NOTE | 2022-08-01 09:09 | MHC.CM.PN ---
IMM 07/31/22 Female 72 s/p tka. She is discharged to home with [facility]. Patient has arranged for a family member to provide transportation home.
[2022-08-01] MEDS: oxyCODONE HCl ER 10 MG TAB.ER.12H PO (09:33)
--- NOTE | 2022-08-25 09:08 | W.PM.OPN ---
Operative Note Operative Note Date of Service: 07/30/22 Narrative: Date of Service: 07/30/22 Pre-op diagnosis: Left knee OA Post-op diagnosis: same Procedure: Left TKA Implants: [employer] Triathlon posterior stabilized cemented 06/26/15ps/32a Surgeon: Naveen Villa MD Anesthesia: GETA and regional Was an Archeology Faculty Member used for this Procedure?: Yes Archeology Faculty Member: Naomy Hall Estimated blood loss (mL): 175 IV fluids (mL): 1,000 Pathology: other Condition: stable Disposition: PACU Procedure in detail: The patient was brought to the operating room and prepped and draped in standard sterile fashion. A time-out was called to identify proper site proper procedure proper surgeon and IV antibiotics were administered. 1 g of IV tranexamic acid was administered. I began by making a midline incision to the retinaculum and performed a medial parapatellar arthrotomy. The patella was translated laterally and the knee was flexed up. The medial and anterior compartments were eburnated. I performed a small medial peel and resected the infrapatellar fat pad. Alejandrina's line was then used to drill my intramedullary femoral guide and my distal femur cut of 10 mm was made in 5 degrees of valgus while protecting the soft tissues. I then measured a # 4 femur and placed my cutting guide and made my anterior posterior and chamfer cuts protecting the soft tissues at all times. I then made my box but removing the PCL. Once I was satisfied with my cuts I turned my attention to the tibia. I removed the meniscus medially and laterally and , using an external cutting guide, in line with the tibial crest and the third ray, I made my distal tibial cut in 0 deg slope of while protecting the posterior soft tissues at all times. An extension block was used to confirm appropriate amount of bony resection. I then sized a #4 tibia and once I was satisfied that there was complete tibial coverage I placed my trial and with the trial femur in place took the knee through range of motion. I was satisfied with the extension and flexion as well as the stability at 0, 30 and 90 degrees. I then turned my attention to the patella where I removed 1 cm from the undersurface of the patella and then trialed a 32a patellar button. Again the knee was taken through range of motion I was satisfied with the tracking. I then prepared the tibia. A femoral bone plug was placed and the knee was irrigated copiously. I then cemented the patella, tibia and femur in standard fashion while applying axial compression. Once the cement was dry all excess cement was removed. I trialed different inserts until I selected a #16 insert. The final insert was placed and a 3 minutes iodine soak with local TXA was performed. A Werewolf cautery wand was used to maintain hemostasis over the capsule and meniscal beds, the gutters and peripatellar soft tissues. The knee was then closed with a running Quill suture, a 3 0 Vicryl and clemente on the skin. Patient was then placed in sterile dressing and brought to recovery room in stable condition there were no known complications.
== END 2022-08-01 12:45 | disposition home health service (06) | DRG 470 ==
LOC: HO.SSSA 06:43 → HO.S3 10:16
PROVIDERS: Physician Assistant; Admitting Provider Orthopaedic Surgery; PCP Internal Medicine; Visit Provider Orthopaedic Surgery
PROC: 0SRD0J9 Replacement of Left Knee Joint with Synthetic Substitute, Cemented, Open Approach (ICD-10-PCS; CPT 27447; principal; 2022-07-30 07:30)
DX: M17.12 Unilateral primary osteoarthritis, left knee (principal); I10 Essential (primary) hypertension; G89.18 Other acute postprocedural pain; Z79.899 Other long term (current) drug therapy
CPT/HCPCS: 36415; 73560; 80048; 85014; 85018; 85025; 86850; 86900; 86901; 88305; 88311; 97110; 97116; 97161; C1713; C1776; J0690; J1100; J1170; J2250; J2405; J2795

== ENCOUNTER → 2022-08-15 12:59 | Outpatient (BNVA) | payer MEDICARE, SELFPAY | PROVIDERS: PCP Internal Medicine; Visit Provider Physician Assistant | DX: Z47.1 Aftercare following joint replacement surgery (principal); Z96.652 Presence of left artificial knee joint | CPT/HCPCS: 99212 ==

== ENCOUNTER → 2022-09-12 14:41 | Outpatient (BNVA) | payer MEDICARE, SELFPAY | PROVIDERS: PCP Internal Medicine; Visit Provider Physician Assistant | DX: Z47.1 Aftercare following joint replacement surgery (principal); Z96.652 Presence of left artificial knee joint | CPT/HCPCS: 99212 ==

== ENCOUNTER 2022-10-03 15:00 | Outpatient (RCR) | payer MEDICARE, SELFPAY ==
--- NOTE | 2022-08-15 14:11 | MHC.PT.EP ---
[facility] [place] Office [place] Office [place] Office [address] [place] [address] [phone] F: [phone] F: [phone] F: [phone] F: [phone] Physical Therapy Plan of Care Date of Evaluation: Date of Surgery: 07/30/22 Diagnosis: S/P Lt TKA Assessment: 72 YO FEMALE REF TO PT S/P LEFT TKA ON 07/30/22- SHE RESIDES ALONE IN A 1 LEVEL HOME AND IS CURRENTLY AMB W A CANE. THE Pt HAS A H/O PREVIOUS Rt TKA 15 YRS AGO. OBJECTIVE FINDINGS: LIMITED AROM ABUNDIO KNEES, TIGHT PSOAS MM ABUNDIO AND DECR ANKLE DF ABUNDIO; DECR STRENGTH IN PROX / LUMBOPELVIC AND Lt LE, POST-OP PAIN IN LEFT KNEE ,AND HEALING ANT Lt KNEE INCISION. FUNCTIONALLY, Pt IS AMB W A CANE- SHE HAS COMPENSATORY GAIT MECHANICS, MODIFIED STAIR MGMT, DECR STANDING, AND DECR LISA TO ADLs REQ Lt KNEE FLEX. Pt IS A GOOD PT CANDIDATE TO GUIDE HER IN HER POST-OP TKR COURSE, ADDRESSING THE ABOVE FINDINGS, PAIN MGMT, AND MAXIMIZING FUNCTIONAL INDEPENDENCE. Frequency and Duration: The patient will be seen 2 x WK x 8 WKS Short Term Goals: *Pt'S LEFT KNEE PAIN DECR TO 2-3/10 *Pt INCREASE Lt KNEE ROM -> 0* EXTEN AND PROGRESSIVELY TO 120* FLEX *INCR FLEXIB IN PSOAS/ CALF MM TO IMPROVE EFFICIENCY OF GAIT ON LEVEL AND STAIRS *REDUCE Lt LE EDEMA AND MONITOR/ ADDRESS SCAR MOB NEEDED Fdc Goals: Pt INDEP W HEP PROGRESSION AND SELF-SX MGMT STRATEGIES IN 8 WKS Pt RESUME REG ADLs EVIDENT W IMPROVED LEFI SCORE (AT EVAL 23/ ) IN 8 WKS Pt INCR LE STRENGTH BY 1 GRADE IN 8 WKS Treatment Plan: Modalities to reduce pain, spasms and effusion. Manual therapy to restore motion and function. Therapeutic exercise to improve strength and flexibility. Neuromuscular re-education for posture and balance. Therapeutic activities to return to functional activities of daily living. Electronically signed by: LINDA ROSALES,PT Please sign and return to therapist. Thank you for your referral.
--- NOTE | 2022-10-03 15:56 | MHC.PT.DC ---
[facility] [place] Office [place] Office [place] Office [address] [place] [address] [phone] F: [phone] F: [phone] F: [phone] F: [phone] Physical Therapy Discharge Report Diagnosis: S/P Lt TKA Date of Surgery: 07/30/22 Date of Evaluation: 08/15/22 Date of Discharge: 10/03/22 Treatments to Date: 13 Cancellations to Date: 0 No Shows to Date: 0 Discharge Status: Recommend MD Follow-up Discharge Summary: 10/03/2022: Pt has made good progress since start of care. She is demonstrating improved R knee ROM and strength at this time. She does still demonstrate strength deficits most notably on stairs but this is improving and likely will continue to improve with continuation of HEP. She also still demonstrates antalgia at times which is likely habitual at this point as she has appropriate ROM. She is aware and understanding of continuing to practice proper mechanics. At this time I feel it is appropriate for her to transition to an HEP to continue making strength gains as we have maximized skilled PT and it is no longer indicated. Pt is in agreement with this plan. Electronically signed by: Patrica Matias, PT, DPT, ATC Please sign and return to therapist. Thank you for your referral.
== END 2022-10-03 15:56 | disposition home or self-care (01) ==
LOC: HO.PTCHIC 15:00
PROVIDERS: PCP Internal Medicine; Visit Provider Orthopaedic Surgery
DX: Z96.652 Presence of left artificial knee joint (principal)
CPT/HCPCS: 97110; 97161; 97530

== ENCOUNTER 2022-10-24 07:46 | Outpatient (REF) | payer MEDICARE, SELFPAY ==
--- NOTE | ~2022-10-24 | XR_ITS ---
EXAMINATION: XR KNEE STANDING, BILATERAL XR KNEE WITH 2 ADDITIONAL VIEWS, LEFT CLINICAL INFORMATION: Pain in unspecified knee. COMPARISON: 07/30/2022. TECHNIQUE: Single standing view of both knees with 2 additional views left knee. FINDINGS: Bilateral total knee prostheses are present. Since the prior study of 07/30/2022, immediate post op findings have improved and the surgical clemente have been removed from the left. No abnormality is seen at this time. The prosthesis appears intact. No fractures. No joint effusion XR/XR knee standing BI IMPRESSION: Bilateral total knee prostheses. No acute finding.
--- NOTE | ~2022-10-24 | XR_ITS ---
EXAMINATION: XR KNEE STANDING, BILATERAL XR KNEE WITH 2 ADDITIONAL VIEWS, LEFT CLINICAL INFORMATION: Pain in unspecified knee. COMPARISON: 07/30/2022. TECHNIQUE: Single standing view of both knees with 2 additional views left knee. FINDINGS: Bilateral total knee prostheses are present. Since the prior study of 07/30/2022, immediate post op findings have improved and the surgical clemente have been removed from the left. No abnormality is seen at this time. The prosthesis appears intact. No fractures. No joint effusion XR/XR knee LT 2V IMPRESSION: Bilateral total knee prostheses. No acute finding.
== END 2022-10-24 07:47 | disposition home or self-care (01) ==
LOC: HO.HOSX 07:46
PROVIDERS: Visit Provider Orthopaedic Surgery
DX: M25.562 Pain in left knee (principal); Z96.652 Presence of left artificial knee joint
CPT/HCPCS: 73560; 73565

== ENCOUNTER 2022-10-24 13:46 | Outpatient (AMB) | payer MEDICARE, SELFPAY ==
--- NOTE | 2022-10-24 13:47 | MHC.OFFVIS ---
Intake Intake Visit Reasons: OV- LT TKA 07/30/22 book with NE with xrays Intake Note: Shannan is a 72 year old female who presents today for a follow up appointment of her left knee, s/p Left TKA 07/30/22. Patient reports that she is doing well. She would like to know how long she will be feeling stiffness. She is doing a home exercise program and wants to know how long she should continue this. She has upcoming dental dental procedure and is requesting abx. Allergies Seasonal Allergies Allergy (Mild, Verified 10/24/22 13:56) Sneezing, coughing HPI OV- LT TKA 07/30/22 book with NE with xrays HPI Details Shannan is a 72 year old woman ~3 months S/P left TKA. She says she is doing well, but continues to have some stiffness or tightness in her knee. She has been performing exercises at-home but denies any formal PT. She denies any pain, unless she rolls onto her side, but this is mild. She says she is able to engage in normal daily activities and is happy with the results of her surgery. She says she has an appointment with the dentist coming up and would like Abx. [facility] Medical History Carpal tunnel syndrome Hypertension Knee osteoarthritis Surgical History History of total right knee replacement Hx of colonoscopy Hx of hysterectomy S/P right rotator cuff repair Status post carpal tunnel release of both wrists Family History Father No problems noted. Mother Colon cancer Social History Household Members: None Household Members Other:: daughter lives in other side of duplex Housing: House Are you a primary floor care technician to a significant other at home: No Do you presently have visiting nurse or other home services: No Patient Tobacco Use Status: Never used Tobacco e-Cigarette/Vaping Use: Never Used service: No Current occupational status: retired Cognitive needs: No Hearing needs: No Vision needs: Yes Review of Systems Const All systems reviewed & are unremarkable except as noted in HPI and below Physical Exam Const General: no acute distress and alert Orientation/consciousness: patient oriented x3 Neuro General: patient oriented x3 Extrem Other: Left Knee: Well-healed incision 0-120 degrees ROM of her left knee compared to 0-90 degrees ROM of her right knee Psych Appearance: grossly normal Affect: normal affect Attitude: cooperative Results Reviewed Results Reviewed: I personally reviewed relevant radiographs. Left total knee arthroplasty in expected post operative position with no hardware complications or evidence of loosening Assessment & Plan Assessment & Plan (1) Status post total knee replacement, left: Code(s): Z96.652 - Presence of left artificial knee joint Plan: This is a 72 year old woman S/P left TKA, DOS: 07/30/22. She is doing well in regards to pain and ROM, but she feels some tightness in her knee. She has been performing ROM exercises at home. I recommend she continue with strengthening & stretching exercises and she massage about her incision site. She should be mindful to not push through pain or overuse her knee for the next few months, and continue activities as tolerated. She can follow p in 1 year. Discussed dental prophylaxis and a prescription was given for Abx. Plan Scribed for Naveen Villa MD by Nash Christy, electromedical equipment technician, on 10/24/22 at 2:05 PM, EST. Orders: Orders XR knee LT 2V 10/24/22 M25.569 - Pain in unspecified knee XR knee standing BI 10/24/22 M25.569 - Pain in unspecified knee Medications: New amoxicillin Take one hour prior to dental work. 500 mg PO BID 4 caps 0RF prior to dental work Z96.652 - Presence of left artificial knee joint Discontinued indapamide 1.25 mg PO QAM 90 tabs 3RF Coding Level of Care Code Global (91245) Diagnoses Status post total knee replacement, left Z96.652
== END 2022-10-24 14:09 | disposition home or self-care (01) ==
PROVIDERS: PCP Internal Medicine; Visit Provider Orthopaedic Surgery
DX: Z96.652 Presence of left artificial knee joint (principal)
CPT/HCPCS: 99024

== ENCOUNTER 2023-07-16 12:47 | Outpatient (AMB) | payer MEDICARE, SELFPAY ==
--- NOTE | 2023-07-16 13:25 | A.OFFPC_ITS ---
Vital Signs 07/16/23 13:31 Height 5 ft 3 in Weight 205 lb BMI 36.3 BP 118/78 Blood Pressure Location Lt brachial Position Sitting Pulse 76 Pulse Source Pulse Oximeter Pulse Oximetry (%) 96 Oxygen Delivery Method Room Air Intake Visit Reasons: Annual PE Intake Note: Pt is here today for her PE Allergies Seasonal Allergies Allergy (Mild, Verified 07/16/23 13:25) Sneezing, coughing Medication List - Last Reconciled 07/16/23 by Eloisa Valdes MD acetaminophen 650 mg (2 x 325 mg) PO Q6H PRN 30 days amlodipine 5 mg PO DAILY cholecalciferol (vitamin D3) (Vitamin D3) 50 mcg PO DAILY indapamide 1.25 mg PO QAM Tobacco use date assessed: 07/16/23 Fall risk assessment: No Falls in past year Last assessed Fall Risk: 07/16/23 Dental Screening Dental Screen Date: 07/16/23 Did you have a dental visit in the last 12 months?: Yes Did you have a dental problem in the last 6 months where you did not have access to dental care?: No Was dental information given to patient?: Patient has dentist HPI Annual PE HPI Details PATIENT PRESENTS FOR PHYSICAL. She complains of sinus congestion postnasal drip facial pain and green discharge from the nose for the last 2 weeks. Patient denies fever or chills pleurisy. Patient went to the doctor to have a tooth extraction and was noted to have elevated blood pressure. Patient denies headaches chest pain and has been compliant taking her medications. [facility] Medical History (Updated 07/16/23 @ 13:56 by Eloisa Valdes MD) Knee osteoarthritis Hypertension Carpal tunnel syndrome Surgical History (Updated 07/16/23 @ 13:45 by Eloisa Valdes MD) Hx of hysterectomy Status post carpal tunnel release of both wrists Hx of colonoscopy S/P right rotator cuff repair History of total right knee replacement Family History Father No problems noted. Mother Colon cancer Social History Household Members: None Household Members Other:: daughter lives in other side of duplex Housing: House Are you a primary care management specialist to a significant other at home: No Do you presently have visiting nurse or other home services: No Patient Tobacco Use Status: Never used Tobacco e-Cigarette/Vaping Use: Never Used service: No Current occupational status: retired Cognitive needs: No Hearing needs: No Vision needs: Yes Questionnaire PHQ-9 Over the last 2 weeks, how often have you been bothered by any of the following problems? 1. Little interest or pleasure in doing things: not at all 2. Feeling down, depressed, or hopeless: not at all 3. Trouble falling or staying asleep, or sleeping too much: not at all 4. Feeling tired or having little energy: not at all 5. Poor appetite or overeating: not at all 6. Feeling bad about yourself - or that you are a failure or have let yourself or your family down: not at all 7. Trouble concentrating on things, such as reading the newspaper or watching television: not at all 8. Moving or speaking so slowly that other people could have noticed. Or the opposite - being so fidgety or restless that you have been moving around a lot more than usual: not at all 9. Thoughts that you would be better off or of hurting yourself in some way: not at all Total score: 0 Depression Screening Interpretation: Negative Depression Screening Done: Yes [id number] - PHQ-9 Billing: Yes Source: Developed by Drs. Juan Anderson, Reva Veloz, Jamarcus Coker and colleagues, with an educational josé from [employer]. Thrive Questionnaire Date Thrive assessed: 07/16/23 I am a: Patient What is your living situation today?: I have a steady place to live Within the past 12 months, did the food you bought not last and you didn't have the money to get more?: Never true Within the past 12 months, did you worry whether your food would run out before you got money to buy more?: Never true Do you have trouble paying for medicines?: No Do you have trouble getting transportation to medical appointments?: No Do you have trouble paying your heating and electricity bill?: No Do you have trouble taking care of your child, family member or friend?: No Do you have trouble with day-to-day activities such as bathing, preparing meals, shopping, managing finances, etc.?: No Are you currently unemployed and looking for a job?: No Are you interested in more education?: No THRIVE Score: 0 AUDIT C Alcohol Use Questionnaire (AUDIT-C) 1. How often do you have a drink containing alcohol?: Never Total Score: 0 CHICO-7 AMB Questionnaire CHICO-7 Date CHICO - 7 assessed: 07/16/23 Feeling nervous, anxious, or on edge: 0 = Not at all Not being able to stop or control worryin = Not at all Worrying too much about different things: 0 = Not at all Trouble relaxin = Not at all Being so restless that it is hard to sit still: 0 = Not at all Becoming easily annoyed or irritable: 0 = Not at all Feeling afraid as if something awful might happen: 0 = Not at all Total CHICO-7 score (0-4 normal; 5-9 mild; 10-14 moderate; 15-21 severe): 0 Source: Developed by Drs. Juan Anderson, Reva Veloz, Jamarcus Coker and colleagues, with an educational josé from [employer]. Review of Systems Const All systems reviewed & are unremarkable except as noted in HPI and below Eyes Reports no additional complaints ENT Reports no additional complaints Card Reports no additional complaints Resp Reports no additional complaints GI Reports no additional complaints Reports no additional complaints Physical exam (Primary Care) Vital Signs: Last Vital Signs Pulse 76 07/16/23 13:31 BP 118/78 07/16/23 13:31 Pulse Ox 96 07/16/23 13:31 Oxygen Delivery Method Room Air 07/16/23 13:31 BMI result Body Mass Index 36.3 Tobacco/Smoking Status: Tobacco use Status Tobacco use date assessed 07/16/23 07/16/23 13:28 Patient Tobacco Use Status Never used Tobacco 07/16/23 13:28 e-Cigarette/Vaping Use Never Used 07/16/23 13:28 PHQ-9: PHQ-9 Score PHQ-9: Total score 0 07/16/23 13:34 Depression Screening Interpretation: Negative Thrive Assessment: Date of Thrive Assessment Date Thrive assessed 07/16/23 07/16/23 13:34 Const General: no acute distress HENMT Head: Yes normal to inspection Ears: TM's normal bilaterally Face and sinus: Yes normal facial exam and Yes sinus tenderness Throat: Yes postnasal drainage Eyes General: appearance normal, both eyes and all related structures Resp Effort & Inspection: normal respiratory effort Auscultation: clear to auscultation bilaterally Cardio Rhythm: regular rhythm Heart sounds: S1 normal heart sound present and S2 normal heart sound present GI Inspection: Yes normal to inspection Palpation (GI): Soft to palpation Percussion: Yes normal to percussion Auscultation: normal bowel sounds Assessment and Plan Assessment & Plan (1) Hypertension: Code(s): I10 - Essential (primary) hypertension Plan: Increase amlodipine to 7.5 mg and continue indapamide. Patient will have blood pressure check in 1 week and will be cleared for dental procedure if blood pressure is less than 130/85 (2) Sinusitis: Code(s): J32.9 - Chronic sinusitis, unspecified Plan: Z-Mike as prescribed and supportive care (3) Annual physical exam: Code(s): Z00.00 - Encounter for general adult medical examination without abnormal findings Plan: Well-balanced diet regular physical activity weight loss discussed with the patient follow-up in 6 weeks with a fasting labs before Orders: Orders Comprehensive [place]. Panel Fast Today D64.9 - Anemia, unspecified, E55.9 - Vitamin D deficiency, unspecified, I10 - Essential (primary) hypertension, Z00.00 - Encounter for general adult medical examination without abnormal findings Lipid Panel Today D64.9 - Anemia, unspecified, E55.9 - Vitamin D deficiency, unspecified, I10 - Essential (primary) hypertension, Z00.00 - Encounter for general adult medical examination without abnormal findings IRON PROFILE Today D64.9 - Anemia, unspecified, E55.9 - Vitamin D deficiency, unspecified, I10 - Essential (primary) hypertension, Z00.00 - Encounter for general adult medical examination without abnormal findings Complete Blood Count Auto Diff Today D64.9 - Anemia, unspecified, E55.9 - Vitamin D deficiency, unspecified, I10 - Essential (primary) hypertension, Z00.00 - Encounter for general adult medical examination without abnormal findings Vitamin D 25-OH Total Today D64.9 - Anemia, unspecified, E55.9 - Vitamin D deficiency, unspecified, I10 - Essential (primary) hypertension, Z00.00 - Encounter for general adult medical examination without abnormal findings Vitamin B12 and Folate Today D64.9 - Anemia, unspecified, E55.9 - Vitamin D deficiency, unspecified, I10 - Essential (primary) hypertension, Z00.00 - E ncounter for general adult medical examination without abnormal findings TSH reflex Free T4 Today D64.9 - Anemia, unspecified, E55.9 - Vitamin D deficiency, unspecified, I10 - Essential (primary) hypertension, Z00.00 - Encounter for general adult medical examination without abnormal findings Medications: New azithromycin For 250 mg dose pack: take 500 mg today (day 1), then 250 mg for 4 days (days 2-5) PO 6 tabs 0RF Changed From amlodipine 5 mg PO DAILY 90 tabs 3RF To amlodipine 7.5 mg (1.5 x 5 mg) PO DAILY 90 tabs 3RF Coding Level of Care Code Est Pt Prev Care >65y(96816) Diagnoses Hypertension I10 Sinusitis J32.9 Annual physical exam Z00.00
[2023-07-16 13:31] VITALS: BP 118/78; PULSE 76; O2SAT 96; BMI 36.3
== END 2023-07-16 14:03 | disposition home or self-care (01) ==
PROVIDERS: PCP Internal Medicine; Visit Provider Internal Medicine
DX: I10 Essential (primary) hypertension (principal); J32.9 Chronic sinusitis, unspecified; Z00.00 Encounter for general adult medical examination without abnormal findings
CPT/HCPCS: 99397

== ENCOUNTER 2023-08-14 09:01 | Outpatient (REF) | payer MEDICARE, SELFPAY ==
[2023-08-14 10:29] LABS: MANUAL DIFF FLAG NO
[2023-08-14 11:00] LABS: Alanine Aminotransferase 15 U/L (0-31); Albumin Level 4.1 g/dL (3.5-5.0); Alkaline Phosphatase 99 U/L (39-117); Anion Gap 13 (12-20); Aspartate Amino Transferase 22 U/L (5-31); Bilirubin Total 0.5 mg/dL (0.0-1.0); Blood Urea Nitrogen 14 mg/dL (9-16); Calcium 9.9 mg/dL (8.4-10.2); Carbon Dioxide 27 mmol/L (22-29); Chloride 105 mmol/L (96-108); Cholesterol 187 mg/dL (<200); Estimated Glomerular Filt Rate > 60; Glucose Fasting 97 mg/dL (60-99); HDL Cholesterol 77 mg/dL (>40); Iron 62 mcg/dL (30-160); LDL Cholesterol Calculated 101 mg/dL (<100); Percent Iron Saturation 18 % (15-50); Potassium 3.9 mmol/L (3.3-5.1); Sodium 141 mmol/L (135-145); Total Iron Binding Capacity 340 mcg/dL (228-428); Total Protein 7.8 g/dL (6.5-8.0); Triglycerides 49 mg/dL (<150); Unsaturated Iron Binding 278 ug/dL
[2023-08-14 11:04] LABS: TSH reflex Free T4 3.04 uIU/mL (0.32-4.0); Vitamin D 25-OH Total 36.7 ng/mL (>30)
[2023-08-14 11:24] LABS: Folate 7.8 ng/mL (> or = 4.0); Vitamin B12 326 pg/mL (200-900)
[2023-08-14 11:34] LABS: Basophils Absolute Auto 0.1 X10*3/uL (0.0-0.2); Basophils Percent Auto 0.8 % (0-2); Eosinophils Absolute Auto 0.2 X10*3/uL (0.0-0.4); Eosinophils Percent Auto 2.7 % (0-4); Hematocrit 40.5 % (37.0-47.0); Hemoglobin 13.1 g/dl (12.0-16.0); Imm Gran Abs Auto 0.01 X10*3/uL (0.00-0.03); Imm Gran Pct Auto 0.2 % (0.0-0.4); Lymphocytes Absolute Auto 2.4 X10*3/uL (1.2-4.9); Lymphocytes Percent Auto 37.6 % (20-40); Mean Corpuscular HGB Conc 32.3 g/dl (31.0-35.0); Mean Corpuscular Hemoglobin 26.5 pg (27.0-33.0); Mean Platelet Volume 9.8 fL (9.4-12.3); Monocytes Absolute Auto 0.7 X10*3/uL (0.1-1.2); Monocytes Percent Auto 10.8 % (2-11); Neutrophils Percent Auto 47.9 % (45-73); Platelet Count 345 X10*3/uL (160-400); Red Blood Count 4.94 X10*6/uL (4.20-5.50); Red Cell Distribution Width 14.5 % (11.0-16.0); White Blood Count 6.3 X10*3/uL (4.8-10.8)
== END 2023-08-14 09:02 | disposition home or self-care (01) ==
LOC: HO.HMGCLDS 09:01
PROVIDERS: PCP Internal Medicine; Visit Provider Internal Medicine
DX: Z00.00 Encounter for general adult medical examination without abnormal findings (principal); E55.9 Vitamin D deficiency, unspecified; I10 Essential (primary) hypertension; D64.9 Anemia, unspecified
CPT/HCPCS: 36415; 80053; 80061; 82306; 82607; 82746; 83540; 84443; 85025

== ENCOUNTER 2023-08-27 08:50 | Outpatient (AMB) | payer MEDICARE, SELFPAY ==
[2023-08-27 08:51] VITALS: BP 126/74; PULSE 66; O2SAT 97; BMI 37.0
--- NOTE | 2023-08-27 08:51 | MHC.PC.OV ---
Vital Signs 08/27/23 08:51 Height 5 ft 3 in Weight 209 lb BMI 37.0 BP 126/74 Blood Pressure Location Rt brachial Position Sitting Pulse 66 Pulse Source Pulse Oximeter Pulse Oximetry (%) 97 Oxygen Delivery Method Room Air Intake Visit Reasons: 6WK F/U Intake Note: Pt is here today for 6 weeks follow up visit. Allergies Seasonal Allergies Allergy (Mild, Verified 08/27/23 08:53) Sneezing, coughing Medication List - Last Reconciled 08/27/23 by Eloisa Valdes MD acetaminophen 650 mg (2 x 325 mg) PO Q6H PRN 30 days amlodipine 7.5 mg (1.5 x 5 mg) PO DAILY cholecalciferol (vitamin D3) (Vitamin D3) 50 mcg PO DAILY indapamide 1.25 mg PO QAM Tobacco use date assessed: 07/16/23 Dental Screening Dental Screen Date: 07/16/23 HPI 6WK F/U HPI Details Pt presents for f/u HTN, CONTROLLED ON CURRENT MEDICATIONS PFSH Medical History (Updated 08/27/23 @ 09:45 by Eloisa Valdes MD) Knee osteoarthritis Hypertension Carpal tunnel syndrome Surgical History Hx of hysterectomy Status post carpal tunnel release of both wrists Hx of colonoscopy S/P right rotator cuff repair History of total right knee replacement Family History Father No problems noted. Mother Colon cancer Social History Household Members: None Household Members Other:: daughter lives in other side of [facility] Housing: House Are you a primary resident care spec to a significant other at home: No Do you presently have visiting nurse or other home services: No Patient Tobacco Use Status: Never used Tobacco e-Cigarette/Vaping Use: Never Used service: No Current occupational status: retired Cognitive needs: No Hearing needs: No Vision needs: Yes Questionnaire Thrive Questionnaire Date Thrive assessed: 07/16/23 CHICO-7 AMB Questionnaire CHICO-7 Date CHICO - 7 assessed: 07/16/23 Source: Developed by Drs. Juan Anderson, Reva Veloz, Jamarcus Coker and colleagues, with an educational josé from [employer]. Review of Systems Const All systems reviewed & are unremarkable except as noted in HPI and below Reports no additional complaints Eyes Reports no additional complaints ENT Reports no additional complaints Card Reports no additional complaints Resp Reports no additional complaints GI Reports no additional complaints Reports no additional complaints Physical exam (Primary Care) Vital Signs: Last Vital Signs Pulse 66 08/27/23 08:51 BP 126/74 08/27/23 08:51 Pulse Ox 97 08/27/23 08:51 Oxygen Delivery Method Room Air 08/27/23 08:51 BMI result Body Mass Index 37.0 Tobacco/Smoking Status: Tobacco use Status Tobacco use date assessed 07/16/23 08/27/23 08:55 Patient Tobacco Use Status Never used Tobacco 08/27/23 08:55 e-Cigarette/Vaping Use Never Used 08/27/23 08:55 Thrive Assessment: Date of Thrive Assessment Date Thrive assessed 07/16/23 08/27/23 08:55 Const General: no acute distress Neck Neck: Yes supple Resp Effort & Inspection: normal respiratory effort Auscultation: clear to auscultation bilaterally Cardio Rhythm: regular rhythm Heart sounds: S1 normal heart sound present and S2 normal heart sound present GI Inspection: Yes normal to inspection Palpation (GI): Soft to palpation Percussion: Yes normal to percussion Assessment and Plan Assessment & Plan (1) Postmenopausal: Code(s): Z78.0 - Asymptomatic menopausal state Plan: Check DEXA (2) Hypertension: Code(s): I10 - Essential (primary) hypertension Plan: Continue current medications follow-up in 6 months. Patient is cleared for dental procedure Orders: Orders XR DEXA axial skeleton Today Z78.0 - Asymptomatic menopausal state Medications: New amlodipine take it with 5 mg QD 2.5 mg PO DAILY 90 tabs 3RF Changed From amlodipine 7.5 mg (1.5 x 5 mg) PO DAILY 90 tabs 3RF To amlodipine take it with 2.5 mg 5 mg PO DAILY 90 tabs 3RF Coding Level of Care Code Est Pt Level 3 (49860) Diagnoses Postmenopausal Z78.0 Hypertension I10
== END 2023-08-27 09:46 | disposition home or self-care (01) ==
PROVIDERS: PCP Internal Medicine; Visit Provider Internal Medicine
DX: Z78.0 Asymptomatic menopausal state (principal); I10 Essential (primary) hypertension
CPT/HCPCS: 99213

== ENCOUNTER 2023-10-03 12:41 | Outpatient (REF) | payer MEDICARE, SELFPAY ==
--- NOTE | ~2023-10-03 | MM_ITS ---
EXAMINATION: BONE DENSITOMETRY CLINICAL INDICATION: Menopause. COMPARISON: This is the patient's baseline examination. TECHNIQUE: Using a [employer] DXA System (software version: 13.1) manufactured by [employer], dual-energy x-ray absorptiometry was performed of the lumbar spine and left hip. The images are of good technical quality. Summary results are attached. FINDINGS: LEFT FEMUR, NECK: BMD 0.917 g/cm2, Z-score 0.2, T-score -0.9, normal. LEFT FEMUR, TOTAL: BMD 0.906 g/cm2, Z-score 0.0, T-score -0.8, normal. AP SPINE L1-L2 (excluding L3 and L4): The data of L1-L4 has been changed to exclude the L3 and L4 vertebral bodies, because degenerative sclerosis at these levels may cause overestimation of lumbar spine density. BMD 1.179 g/cm2, Z-score 0.8, T-score 0.1, normal. IDENTIFIED RISK FACTORS: Menopause, hysterectomy. HISTORY OF FRACTURE: None listed. MEDICATIONS: None listed. MM/XR DEXA axial skeleton IMPRESSION: 1. DIAGNOSIS: Normal bone density based on the lowest T-score value of -0.9 in the femoral neck applying World Health Organization criteria. 2. 10-YEAR FRACTURE RISK PREDICTION, FRAX: According to the guidelines, FRAX calculation should only be performed on patients in the osteopenia bone density category. Therefore, FRAX was not performed on this patient. 3. Treatment Recommendations: NOF guidelines recommend consideration for treatment in postmenopausal women and men age 50 and older presenting with the following: -A hip or vertebral (clinical or morphometric) fracture. -T-score less than or equal to -2.5 at the femoral neck or spine after appropriate evaluation to exclude secondary causes. -Low bone mass at the hip or spine and a 10-year fracture probability by FRAX of greater than or equal to 3% for hip fracture or greater than or equal to 20% for major osteoporotic fracture based on the [place] adapted WHO algorithm. 4. Other Recommendations: All treatment decisions require clinical judgment and consideration of individual patient factors, including patient preferences, comorbidities, previous drug use, risk factors not captured in the FRAX model (e.g. frailty, falls, vitamin D deficiency, increased bone turnover, interval significant decline in bone density) and possible under or overestimation of fracture risk by FRAX. FUTURE SCAN RECOMMENDATION: People with diagnosed cases of osteoporosis or at high risk for fracture should have regular bone mineral density tests. For patients eligible for Medicare, routine testing is allowed once every 2 years. The testing frequency can be increased to one year for patients who have rapidly progressing disease, those who are receiving or discontinuing medical therapy to restore bone mass, or have additional risk factors.
== END 2023-10-03 12:42 | disposition home or self-care (01) ==
LOC: HO.MAMMO 12:41
PROVIDERS: PCP Internal Medicine; Visit Provider Internal Medicine
DX: Z13.820 Encounter for screening for osteoporosis (principal); Z78.0 Asymptomatic menopausal state
CPT/HCPCS: 77080

== ENCOUNTER 2024-02-23 10:01 | Outpatient (AMB) | payer MEDICARE, SELFPAY ==
[2024-02-23 10:05] VITALS: BP 106/64; PULSE 63; O2SAT 98; BMI 38.1
--- NOTE | 2024-02-23 10:05 | MHC.PC.OV ---
Vital Signs 02/23/24 10:05 Height 5 ft 3 in Weight 215 lb BMI 38.1 BP 106/64 Blood Pressure Location Rt brachial Position Sitting Pulse 63 Pulse Source Pulse Oximeter Pulse Oximetry (%) 98 Oxygen Delivery Method Room Air Intake Visit Reasons: 6 month follow up Intake Note: Pt is here today for 6 months follow up visit. Allergies Seasonal Allergies Allergy (Mild, Verified 02/23/24 10:07) Sneezing, coughing Medication List - Last Reconciled 02/23/24 by Eloisa Valdes MD acetaminophen 650 mg (2 x 325 mg) PO Q6H PRN 30 days amlodipine 5 mg PO DAILY amlodipine 2.5 mg PO DAILY cholecalciferol (vitamin D3) (Vitamin D3) 50 mcg PO DAILY indapamide 1.25 mg PO QAM Tobacco use date assessed: 02/23/24 Fall risk assessment: No Falls in past year Last assessed Fall Risk: 02/23/24 Dental Screening Dental Screen Date: 02/23/24 Did you have a dental visit in the last 12 months?: Yes Did you have a dental problem in the last 6 months where you did not have access to dental care?: No Was dental information given to patient?: Patient has dentist HPI 6 month follow up HPI Details Pt presents for f/u HTN, stable on meds. PFSH Medical History (Updated 08/27/23 @ 09:45 by Eloisa Valdes MD) Knee osteoarthritis Hypertension Carpal tunnel syndrome Surgical History Hx of hysterectomy Status post carpal tunnel release of both wrists Hx of colonoscopy S/P right rotator cuff repair History of total right knee replacement Family History Father No problems noted. Mother Colon cancer Social History Household Members: None Household Members Other:: daughter lives in other side of duplex Housing: House Are you a primary physician locums urgent care to a significant other at home: No Do you presently have visiting nurse or other home services: No Patient Tobacco Use Status: Never used Tobacco e-Cigarette/Vaping Use: Never Used service: No Current occupational status: retired Cognitive needs: No Hearing needs: No Vision needs: Yes Questionnaire PHQ-9 Over the last 2 weeks, how often have you been bothered by any of the following problems? 1. Little interest or pleasure in doing things: not at all 2. Feeling down, depressed, or hopeless: not at all 3. Trouble falling or staying asleep, or sleeping too much: not at all 4. Feeling tired or having little energy: not at all 5. Poor appetite or overeating: not at all 6. Feeling bad about yourself - or that you are a failure or have let yourself or your family down: not at all 7. Trouble concentrating on things, such as reading the newspaper or watching television: not at all 8. Moving or speaking so slowly that other people could have noticed. Or the opposite - being so fidgety or restless that you have been moving around a lot more than usual: not at all 9. Thoughts that you would be better off or of hurting yourself in some way: not at all Total score: 0 Depression Screening Interpretation: Negative Depression Screening Done: Yes 78155 - PHQ-9 Billing: Yes Source: Developed by Drs. Juan Anderson, Reva Veloz, Jamarcus Coker and colleagues, with an educational josé from [employer]. Thrive Questionnaire Date Thrive assessed: 02/23/24 I am a: Patient What is your living situation today?: I have a steady place to live Within the past 12 months, did the food you bought not last and you didn't have the money to get more?: Never true Within the past 12 months, did you worry whether your food would run out before you got money to buy more?: Never true Do you have trouble paying for medicines?: Yes Do you have trouble getting transportation to medical appointments?: No Do you have trouble paying your heating and electricity bill?: No Do you have trouble taking care of your child, family member or friend?: No Do you have trouble with day-to-day activities such as bathing, preparing meals, shopping, managing finances, etc.?: No Are you currently unemployed and looking for a job?: No Are you interested in more education?: No Please select the resources that you would like help with: None Currently or been in a relationship where the following occur: No concerns reported THRIVE Score: 0 AUDIT C Alcohol Use Questionnaire (AUDIT-C) 1. How often do you have a drink containing alcohol?: Never 3. How often do you have six or more drinks on one occasion?: Never Total Score: 0 CHICO-7 AMB Questionnaire CHICO-7 Date CHICO - 7 assessed: 02/23/24 Feeling nervous, anxious, or on edge: 0 = Not at all Not being able to stop or control worryin = Not at all Worrying too much about different things: 0 = Not at all Trouble relaxin = Not at all Being so restless that it is hard to sit still: 0 = Not at all Becoming easily annoyed or irritable: 0 = Not at all Feeling afraid as if something awful might happen: 0 = Not at all Total CHICO-7 score (0-4 normal; 5-9 mild; 10-14 moderate; 15-21 severe): 0 Source: Developed by Drs. Juan Anderson, Reva Veloz, Jamarcus Coker and colleagues, with an educational josé from [employer]. CHICO-7 Assessment Billing CHICO-7 Assessment Tool: CHICO-7 Assessment 02921 Review of Systems Const All systems reviewed & are unremarkable except as noted in HPI and below Eyes Reports no additional complaints ENT Reports no additional complaints Card Reports no additional complaints Resp Reports no additional complaints GI Reports no additional complaints Reports no additional complaints Physical exam (Primary Care) Vital Signs: Last Vital Signs Pulse 63 02/23/24 10:05 BP 106/64 02/23/24 10:05 Pulse Ox 98 02/23/24 10:05 Oxygen Delivery Method Room Air 02/23/24 10:05 BMI result Body Mass Index 38.1 Tobacco/Smoking Status: Tobacco use Status Tobacco use date assessed 02/23/24 02/23/24 10:09 Patient Tobacco Use Status Never used Tobacco 02/23/24 10:09 e-Cigarette/Vaping Use Never Used 02/23/24 10:09 PHQ-9: PHQ-9 Score PHQ-9: Total score 0 02/23/24 10:39 Depression Screening Interpretation: Negative Thrive Assessment: Date of Thrive Assessment Date Thrive assessed 02/23/24 02/23/24 10:09 Currently or been in a relationship where the following occur: No concerns reported Const General: no acute distress HENMT Head: Yes normal to inspection Mouth: Normal oral and palatal mucosa present Eyes General: appearance normal, both eyes and all related structures Neck Neck: Yes no lymphadenopathy Resp Effort & Inspection: normal respiratory effort Auscultation: clear to auscultation bilaterally Cardio Rhythm: regular rhythm Heart sounds: S1 normal heart sound present and S2 normal heart sound present GI Inspection: Yes normal to inspection Palpation (GI): Soft to palpation Percussion: Yes normal to percussion Coding Level of Care Code Est Pt Level 3 (14843) Diagnoses Hypertension I10 Vitamin D deficiency E55.9 Annual physical exam Z00.00 Anemia D64.9 Additional Codes CHICO-7 Assessment Billing - CHICO-7 Assessment Tool: CHICO-7 Assessment 95688 ([id number]) PHQ-9 - 85624 - PHQ-9 Billing: Yes ([id number]) Assessment & Plan Assessment & Plan (1) Hypertension: Code(s): I10 - Essential (primary) hypertension Category: Medical Plan: Continue current medications check basic metabolic panel today return 6 months for physical (2) Vitamin D deficiency: Code(s): E55.9 - Vitamin D deficiency, unspecified Category: Medical Plan: Continue vitamin-D check the level (3) Annual physical exam: Code(s): Z00.00 - Encounter for general adult medical examination without abnormal findings Category: Medical Plan: Well-balanced diet (4) Anemia: Code(s): D64.9 - Anemia, unspecified Category: Medical Plan: Check CBC Orders: Orders Basic Metabolic Panel Today I10 - Essential (primary) hypertension Comprehensive [place]. Panel Fast 6 Months D64.9 - Anemia, unspecified, E55.9 - Vitamin D deficiency, unspecified, I10 - Essential (primary) hypertension, Z00.00 - Encounter for general adult medical examination without abnormal findings Complete Blood Count Auto Diff 6 Months D64.9 - Anemia, unspecified, E55.9 - Vitamin D deficiency, unspecified, I10 - Essential (primary) hypertension, Z00.00 - Encounter for general adult medical examination without abnormal findings Lipid Panel 6 Months D64.9 - Anemia, unspecified, E55.9 - Vitamin D deficiency, unspecified, I10 - Essential (primary) hypertension, Z00.00 - Encounter for general adult medical examination without abnormal findings Vitamin D 25-OH Total 6 Months D64.9 - Anemia, unspecified, E55.9 - Vitamin D deficiency, unspecified, I10 - Essential (primary) hypertension, Z00.00 - Encounter for general adult medical examination without abnormal findings Medications: New cholecalciferol (vitamin D3) (Vitamin D3) 50 mcg PO DAILY 90 caps 3RF Refilled amlodipine take it with 2.5 mg 5 mg PO DAILY 90 tabs 3RF amlodipine take it with 5 mg QD 2.5 mg PO DAILY 90 tabs 3RF indapamide 1.25 mg PO QAM 90 tabs 3RF
== END 2024-02-23 10:46 | disposition home or self-care (01) ==
PROVIDERS: PCP Internal Medicine; Visit Provider Internal Medicine
DX: I10 Essential (primary) hypertension (principal); E55.9 Vitamin D deficiency, unspecified; Z00.00 Encounter for general adult medical examination without abnormal findings; D64.9 Anemia, unspecified

== ENCOUNTER 2024-02-23 10:01 | Outpatient (REF) | payer MEDICARE, SELFPAY ==
[2024-02-23 14:14] LABS: Anion Gap 11 (12-20); Blood Urea Nitrogen 14 mg/dL (9-16); Calcium 9.2 mg/dL (8.4-10.2); Carbon Dioxide 28 mmol/L (22-29); Chloride 106 mmol/L (96-108); Estimated Glomerular Filt Rate > 60; Glucose Random 99 mg/dL (60-115); Potassium 3.8 mmol/L (3.3-5.1); Sodium 141 mmol/L (135-145)
== END 2024-02-23 10:02 | disposition home or self-care (01) ==
LOC: HO.HMGCLDS 10:01
PROVIDERS: PCP Internal Medicine; Visit Provider Internal Medicine
DX: Z00.00 Encounter for general adult medical examination without abnormal findings (principal); I10 Essential (primary) hypertension; E55.9 Vitamin D deficiency, unspecified; D64.9 Anemia, unspecified
CPT/HCPCS: 36415; 80048; 96127; 99212

== ENCOUNTER 2024-06-30 12:24 | Outpatient (AMB) | payer MEDICARE, SELFPAY ==
[2024-06-30 12:39] VITALS: BP 126/78; PULSE 70; RESP 18; TEMP 36.5; O2SAT 98; BMI 39.5
--- NOTE | 2024-06-30 12:39 | A.OFFPC_ITS ---
Vital Signs 06/30/24 12:39 Height 5 ft 3 in Weight 223 lb BMI 39.5 BP 126/78 Blood Pressure Location Lt brachial Position Sitting Respiration 18 Pulse 70 Pulse Source Pulse Oximeter Temp 97.7 F Temp Source Oral Pulse Oximetry (%) 98 Oxygen Delivery Method Room Air Intake Visit Reasons: 5 month follow up, reschedule Intake Note: Pt is here today for 5 months follow up visit. Allergies Seasonal Allergies Allergy (Mild, Verified 06/30/24 12:41) Sneezing, coughing Tobacco use date assessed: 06/30/24 Fall risk assessment: No Falls in past year Last assessed Fall Risk: 06/30/24 Dental Screening Dental Screen Date: 06/30/24 Did you have a dental visit in the last 12 months?: Yes Did you have a dental problem in the last 6 months where you did not have access to dental care?: No Was dental information given to patient?: Patient has dentist HPI 5 month follow up, reschedule HPI Details Pt presents for HTN, stable on meds. PFSH Medical History (Updated 06/30/24 @ 14:53 by Eloisa Valdes MD) Knee osteoarthritis Hypertension Carpal tunnel syndrome Surgical History Hx of hysterectomy Status post carpal tunnel release of both wrists Hx of colonoscopy S/P right rotator cuff repair History of total right knee replacement Family History Father No problems noted. Mother Colon cancer Social History Household Members: None Household Members Other:: daughter lives in other side of duplex Housing: House Are you a primary day care supervisor to a significant other at home: No Do you presently have visiting nurse or other home services: No Patient Tobacco Use Status: Never used Tobacco e-Cigarette/Vaping Use: Never Used service: No Current occupational status: retired Cognitive needs: No Hearing needs: No Vision needs: Yes Questionnaire PHQ-9 Over the last 2 weeks, how often have you been bothered by any of the following problems? 1. Little interest or pleasure in doing things: not at all 2. Feeling down, depressed, or hopeless: not at all 3. Trouble falling or staying asleep, or sleeping too much: not at all 4. Feeling tired or having little energy: not at all 5. Poor appetite or overeating: not at all 6. Feeling bad about yourself - or that you are a failure or have let yourself or your family down: not at all 7. Trouble concentrating on things, such as reading the newspaper or watching television: not at all 8. Moving or speaking so slowly that other people could have noticed. Or the opposite - being so fidgety or restless that you have been moving around a lot more than usual: not at all 9. Thoughts that you would be better off or of hurting yourself in some way: not at all Total score: 0 Depression Screening Interpretation: Negative Depression Screening Done: Yes 80664 - PHQ-9 Billing: Yes Source: Developed by Drs. Juan Anderson, Reva Veloz, Jamarcus Coker and colleagues, with an educational josé from [employer]. Thrive Questionnaire Date Thrive assessed: 06/30/24 I am a: Patient What is your living situation today?: I have a steady place to live Within the past 12 months, did the food you bought not last and you didn't have the money to get more?: Never true Within the past 12 months, did you worry whether your food would run out before you got money to buy more?: Never true Do you have trouble paying for medicines?: No Do you have trouble getting transportation to medical appointments?: No Do you have trouble paying your heating and electricity bill?: No Do you have trouble taking care of your child, family member or friend?: No Do you have trouble with day-to-day activities such as bathing, preparing meals, shopping, managing finances, etc.?: No Are you currently unemployed and looking for a job?: No Are you interested in more education?: No THRIVE Score: 0 AUDIT C Alcohol Use Questionnaire (AUDIT-C) 1. How often do you have a drink containing alcohol?: Never 3. How often do you have six or more drinks on one occasion?: Never Total Score: 0 CHICO-7 AMB Questionnaire CHICO-7 Date CHICO - 7 assessed: 06/30/24 Feeling nervous, anxious, or on edge: 0 = Not at all Not being able to stop or control worryin = Not at all Worrying too much about different things: 0 = Not at all Trouble relaxin = Not at all Being so restless that it is hard to sit still: 0 = Not at all Becoming easily annoyed or irritable: 0 = Not at all Feeling afraid as if something awful might happen: 0 = Not at all Total CHICO-7 score (0-4 normal; 5-9 mild; 10-14 moderate; 15-21 severe): 0 Source: Developed by Drs. Juan Anderson, Reva Veloz, Jamarcus Coker and colleagues, with an educational josé from [employer]. CHICO-7 Assessment Billing CHICO-7 Assessment Tool: CHICO-7 Assessment 32323 Review of Systems Const All systems reviewed & are unremarkable except as noted in HPI and below Eyes Reports no additional complaints ENT Reports no additional complaints Card Reports no additional complaints Resp Reports no additional complaints GI Reports no additional complaints Reports no additional complaints Physical exam (Primary Care) Vital Signs: Last Vital Signs Temp 97.7 F 06/30/24 12:39 Pulse 70 06/30/24 12:39 Resp 18 06/30/24 12:39 BP 126/78 06/30/24 12:39 Pulse Ox 98 06/30/24 12:39 Oxygen Delivery Method Room Air 06/30/24 12:39 BMI result Body Mass Index 39.5 Tobacco/Smoking Status: Tobacco use Status Tobacco use date assessed 06/30/24 06/30/24 12:44 Patient Tobacco Use Status Never used Tobacco 06/30/24 12:44 e-Cigarette/Vaping Use Never Used 06/30/24 12:39 PHQ-9: PHQ-9 Score PHQ-9: Total score 0 06/30/24 13:26 Depression Screening Interpretation: Negative Thrive Assessment: Date of Thrive Assessment Date Thrive assessed 06/30/24 06/30/24 12:39 Const General: no acute distress HENMT Head: Yes normal to inspection Eyes General: appearance normal, both eyes and all related structures Neck Neck: Yes supple Resp Effort & Inspection: normal respiratory effort Auscultation: clear to auscultation bilaterally Cardio Rhythm: regular rhythm Heart sounds: S1 normal heart sound present and S2 normal heart sound present GI Inspection: Yes normal to inspection Palpation (GI): Soft to palpation Percussion: Yes normal to percussion Auscultation: normal bowel sounds Immunizations pneumoc 20-ludmila conj-dip cr(PF) 0.5 mL IM syringe Performing Provider: Eloisa Valdes MD Performing Location: [facility] Administered by: VIGNESH Milner on 06/30/24 13:19 Dose Route Admin Location Dispensed Lot Number Expiration Date [facility] Seed Analyst 0.5 mL IM Left Deltoid 0.5 mL [id number] 09/20/25 3348-3066-36 [employer] VIS Given Date VIS Provided VIS Publication Date 06/30/24 Single Vaccine 21 Eligibility Eligibility Date Funding Source Not [facility] Eligible 06/30/24 Private Coding Level of Care Code Est Pt Level 3 (80776) Diagnoses Hypertension I10 Overweight E66.3 Additional Codes CHICO-7 Assessment Billing - CHICO-7 Assessment Tool: CHICO-7 Assessment 99977 ([id number]) PHQ-9 - 30570 - PHQ-9 Billing: Yes ([id number]) Assessment & Plan Assessment & Plan (1) Hypertension: Code(s): I10 - Essential (primary) hypertension Category: Medical Plan: Continue current medications (2) Overweight: Code(s): E66.3 - Overweight Category: Medical Plan: Decreasing caloric intake increasing physical activity discussed with the patient Orders: Orders Pneumococcal 20 Immunization Today Z23 - Encounter for immunization
--- OUTSIDE RECORDS SUMMARY | 2024-06-30 14:24 | XMS_ITS | Patient Health Record ---
Author Organization [facility], [facility] Address [address] [place] [phone] Support Name Relationship Address Phone ILYA BURT Guarantor Unknown Unavailabl e REASON FOR REFERRAL No Information PLAN OF TREATMENT No Information Insurance Providers Payer Name Payer Address Payer Phone Subscriber Number Group Number Insured Name Patient Relationship to Insured Coverage Start Date Coverage End Date [employer] [address] [address] [place], [place] [id number] ILYA BURT Self - patient is the insured
== END 2024-06-30 13:48 | disposition home or self-care (01) ==
LOC: HO.HMCC 12:26
PROVIDERS: PCP Internal Medicine; Visit Provider Internal Medicine
DX: I10 Essential (primary) hypertension (principal); E66.3 Overweight; Z23 Encounter for immunization

== ENCOUNTER → 2024-06-30 12:24 | Outpatient (BNVA) | payer MEDICARE, SELFPAY | PROVIDERS: PCP Internal Medicine; Visit Provider Internal Medicine | DX: Z23 Encounter for immunization (principal); I10 Essential (primary) hypertension; E66.3 Overweight; Z68.39 Body mass index [BMI] 39.0-39.9, adult; Z71.3 Dietary counseling and surveillance | CPT/HCPCS: 90471; 90677; 96127; 99212 ==

== ENCOUNTER 2025-02-01 07:59 | Outpatient (REF) | payer MEDICARE, SELFPAY ==
--- NOTE | ~2025-02-01 | XR_ITS ---
EXAMINATION: XR WRIST, LEFT CLINICAL INFORMATION: M25.532 - Pain in left wrist COMPARISON: None available. TECHNIQUE: PA, lateral, and oblique views of the left wrist. FINDINGS: No acute cortical disruption or gross malalignment. There is a 5 mm sclerotic marginated lucency in the styloid process of the radius. No subcutaneous emphysema. No metallic or radiopaque foreign body. XR/XR wrist LT min 3V IMPRESSION: Subchondral cyst, styloid processes, left radius. Electronically signed by: Seb Trivedi MD 02/01/2025 08:53 AM JEROMY
[2025-02-01 10:29] LABS: MANUAL DIFF FLAG NO
[2025-02-01 10:45] LABS: Hematocrit 36.1 % (37.0-47.0); Hemoglobin 11.2 g/dl (12.0-16.0); Imm Gran Abs Auto 0.01 X10*3/uL (0.00-0.03); Imm Gran Pct Auto 0.2 % (0.0-0.4); Lymphocytes Absolute Auto 2.1 X10*3/uL (1.2-4.9); Mean Corpuscular HGB Conc 31.0 g/dl (31.0-35.0); Mean Corpuscular Hemoglobin 24.0 pg (27.0-33.0); Mean Corpuscular Volume 77.3 fL (80.0-98.0); NRBC Abs Auto 0.000 X10*3/uL (0.0-0.012); NRBC Pct Auto 0.0 /100WBC (0.0-0.2); Platelet Count 399 X10*3/uL (160-400); Red Blood Count 4.67 X10*6/uL (4.20-5.50); White Blood Count 5.7 X10*3/uL (4.8-10.8)
[2025-02-01 11:06] LABS: Alanine Aminotransferase 16 U/L (0-31); Albumin Level 4.1 g/dL (3.5-5.0); Alkaline Phosphatase 114 U/L (39-117); Anion Gap 12 (12-20); Aspartate Amino Transferase 30 U/L (5-31); Blood Urea Nitrogen 21 mg/dL (9-16); Calcium 9.3 mg/dL (8.4-10.2); Carbon Dioxide 28 mmol/L (22-29); Chloride 106 mmol/L (96-108); Cholesterol 184 mg/dL (<200); Estimated Glomerular Filt Rate > 60; HDL Cholesterol 74 mg/dL (>40); Potassium 3.5 mmol/L (3.3-5.1); Sodium 142 mmol/L (135-145); Total Protein 7.3 g/dL (6.5-8.0); Triglycerides 57 mg/dL (<150)
== END 2025-02-01 08:00 | disposition home or self-care (01) ==
LOC: HO.HMGCX 07:59
PROVIDERS: Absent Provider Internal Medicine; PCP Internal Medicine; Visit Provider Physician Assistant
DX: M25.532 Pain in left wrist (principal); Z00.00 Encounter for general adult medical examination without abnormal findings; E55.9 Vitamin D deficiency, unspecified; I10 Essential (primary) hypertension; D64.9 Anemia, unspecified; Z79.899 Other long term (current) drug therapy
CPT/HCPCS: 36415; 73110; 80053; 80061; 82306; 85025; 99212

== ENCOUNTER 2025-02-01 07:59 | Outpatient (AMB) | payer MEDICARE, SELFPAY ==
[2025-02-01 08:08] VITALS: BP 142/90; PULSE 78; O2SAT 96; BMI 40.7
--- NOTE | 2025-02-01 08:08 | AM.OFFWIN_ITS ---
Intake Vital Signs 02/01/25 08:08 Height 5 ft 3 in Weight 230 lb BMI 40.7 BP 142/90 H Blood Pressure Location Rt brachial Position Sitting Pulse 78 Pulse Source Pulse Oximeter Pulse Oximetry (%) 96 Oxygen Delivery Method Room Air Intake Visit Reasons: EP-lt wrist pain Intake Note: Patient presents with c/o left wrist pain x2 months that has gradually been worsening. Patient Tobacco Use Status: Never used Tobacco Allergies Seasonal Allergies Allergy (Mild, Verified 02/01/25 08:10) Sneezing, coughing HPI HPI Comments History of Present Illness Details History of Present Illness - The patient is a 74-year-old female pr esenting with left wrist pain and suspected recurrence of Carpal Tunnel Syndrome. - The patient reports left wrist pain pe rsisting for several months, with worsening symptoms. - She experiences soreness and pain when lifting objects, although she does not drop them. - The patient has a history of Carpal Tu nnel Syndrome surgery on the left wrist approximately 40 years ago. - She occasionally uses a wrist splint, which provides temporary relief but causes discomfort due to pressure. - The pain sometimes radiates up to the shoulder, and she reports difficulty sleeping due to the discomfort. - She has been using ibuprofen for pain management and is considering trying diclofenac cream. - She is right handed. - She denies trauma or fall. - She has no associated hand pain, arm p ain, or elbow pain. Physical Exam General: Cooperative, healthy appearing, comfortable, no acute distress and well developed Orientation: Patient oriented x3 Respiratory: Normal respiratory effort and able to speak in complete sentences. Clear to auscultation bilaterally Cardiovascular: Regular rate and rhythm. Normal S1 and S2. Pulses are 2+ on the UE. Skin: No rashes or lesions noted Neuro: Sensation is intact. Extremities: Normal to inspection. Scar noted on the left wrist on the volar aspect. FROM of the wrist. TTP of the radial aspect of the left wrist. No TTP of the thumb or metacarpals. No snuffbox tenderness noted. Negative Tinels, phalen and prayer test on the left. Hand family practice medical doctor is intact. Strength is 5/5 on the UE bilaterally. Negative Finklesteins test on the left. Patient was informed and verbally consented to the use of an ambient scribe for clinic note documentation during this visit. [facility] Medical History (Updated 06/30/24 @ 14:53 by Eloisa Valdes MD) Knee osteoarthritis Hypertension Carpal tunnel syndrome Surgical History Hx of hysterectomy Status post carpal tunnel release of both wrists Hx of colonoscopy S/P right rotator cuff repair History of total right knee replacement Family History Father No problems noted. Mother Colon cancer Social History Household Members: None Household Members Other:: daughter lives in other side of [facility] Housing: House Are you a primary care navigator to a significant other at home: No Do you presently have visiting nurse or other home services: No Patient Tobacco Use Status: Never used Tobacco e-Cigarette/Vaping Use: Never Used service: No Current occupational status: retired Cognitive needs: No Hearing needs: No Vision needs: Yes Review of Systems Const All systems reviewed & are unremarkable except as noted in HPI and below Physical Exam Vital Signs: Last Vital Signs Pulse 78 02/01/25 08:08 BP 142/90 H 02/01/25 08:08 Pulse Ox 96 02/01/25 08:08 Oxygen Delivery Method Room Air 02/01/25 08:08 BMI result Body Mass Index 40.7 Results Reviewed Results Reviewed: will review the xray in the offiice Assessment & Plan Assessment & Plan (1) Left wrist pain: Code(s): M25.532 - Pain in left wrist Plan Most likely Carpal Tunnel Syndrome vs arthritis vs strain vs cyst vs tendonitis plan - rest, ice and elevation - An x-ray of the left wrist was ordered to assist in further evaluation. - Referral to radiological equipment specialist was discussed, with an appointment already scheduled for February 23. - The patient was advised to continue using a wrist splint and consider using diclofenac cream for pain management. - pt has f/u with PCP on 02/28 Orders: Orders XR wrist LT min 3V Today M25.532 - Pain in left wrist Medications: New diclofenac sodium 3% 1 appl topical BID 100 grams 0RF Coding Level of Care Code Est Pt Level 4 (54563) Diagnoses Left wrist pain M25.532
== END 2025-02-01 08:35 | disposition home or self-care (01) ==
PROVIDERS: PCP Internal Medicine; Visit Provider Physician Assistant Medical
DX: M25.532 Pain in left wrist (principal)

== ENCOUNTER → 2025-02-01 08:35 | Outpatient (BNV) | payer MEDICARE, SELFPAY | PROVIDERS: Absent Provider Internal Medicine; PCP Internal Medicine; Visit Provider Radiology Diagnostic Radiology | DX: M85.432 Solitary bone cyst, left ulna and radius (principal) | CPT/HCPCS: 73110 ==

== ENCOUNTER 2025-02-23 15:06 | Outpatient (AMB) | payer MEDICARE, SELFPAY ==
[2025-02-23 15:17] VITALS: BMI 40.7
--- NOTE | 2025-02-23 15:17 | MHC.OFFVIS ---
Vital Signs 02/23/25 15:17 Height 5 ft 3 in Weight 230 lb BMI 40.7 Intake Visit Reasons: NewProb- LT wrist pain Intake Note: Shannan is a 74 year old Right hand dominant female who presents today for a New Problem visit with complaints of Left Wrist Pain. Patient was seen at [facility] [place] on 02/01/15 with complaints of worsening left wrist pain for about 2 months. She has been utilizing a velcro wrist brace and taking Ibuprofen PRN without much relief. Patient complains of pain on the volar aspect of the wrist and the left thumb, primarily when bending the hand. She explains how it is difficult to hold things. She denies numbness, tingling, or finger locking. She denies any recent injuries to the left wrist. History of Left Carpal Tunnel Release about 40 years ago. Allergies Seasonal Allergies Allergy (Mild, Verified 02/23/25 15:18) Sneezing, coughing HPI HPI NewProb- LT wrist pain: Details: Shannan is a 74 year old Right hand dominant female who presents today for a New Problem visit with complaints of Left Wrist Pain. Patient was seen at [facility] [place] on 02/01/15 with complaints of worsening left wrist pain for about 2 months. She has been utilizing a velcro wrist brace and taking Ibuprofen PRN without much relief. Patient complains of pain on the volar aspect of the wrist and the left thumb, primarily when bending the hand. Patient states that there is an area of prominence in her worst area of pain, and that this is just below the thumb on the volar aspect of the wrist. She explains how it is difficult to hold things. She denies numbness, tingling, or finger locking. She denies any recent injuries to the left wrist. History of Left Carpal Tunnel Release about 40 years ago. [facility] Medical History (Updated 02/23/25 @ 15:45 by TULIO Leiva) Knee osteoarthritis Hypertension Carpal tunnel syndrome Surgical History Hx of hysterectomy Status post carpal tunnel release of both wrists Hx of colonoscopy S/P right rotator cuff repair History of total right knee replacement Family History Father No problems noted. Mother Colon cancer Social History Household Members: None Household Members Other:: daughter lives in other side of [facility] Housing: House Are you a primary health care technician to a significant other at home: No Do you presently have visiting nurse or other home services: No Patient Tobacco Use Status: Never used Tobacco e-Cigarette/Vaping Use: Never Used service: No Current occupational status: retired Cognitive needs: No Hearing needs: No Vision needs: Yes Review of Systems Const All systems reviewed & are unremarkable except as noted in HPI and below Physical Exam Vital Signs: BMI result Body Mass Index 40.7 Extrem Other: Patient is alert, oriented, and in no acute distress. Neuro: Normal sensation of the tips of all digits of the left hand at this time Vascular: Cap refill brisk Pain: Significant tenderness to palpation to area of prominence in the area of the scaphoid tubercle of the left wrist Mild tenderness to palpation of left radial styloid No tenderness to palpation of the ulnar styloid, DRUJ, anatomical snuffbox, or elsewhere in the left wrist ROM: Patient is able to make a closed fist and extend all digits of the left hand fully Range of motion of the left wrist full and intact, but is painful in his area. Skin: No lacerations or abrasions. General: No ecchymosis, erythema, or evidence of infection. Psych: Appears grossly normal Affect normal Attitude cooperative Results Reviewed Results Reviewed: X-rays obtained in the office today and independently reviewed by me, Balbir Saldana PA-C, demonstrate cystic changes of the left radial styloid with no evidence of fracture or acute bony abnormality noted.. Assessment & Plan Assessment & Plan (1) Left wrist pain: Code(s): M25.532 - Pain in left wrist Category: Medical Plan 1. Left wrist pain with area of prominence over scaphoid tubercle Ongoing for approximately 3 months Patient is educated about this condition Patient is educated about the diagnostic and treatment course At this time, due to area of prominence that I feel may represent a deep ganglion cyst, CT scan is ordered to assess the health of the soft tissue structures of the left wrist In the meantime, patient is provided with comfort cool thumb spica brace to be worn when her thumb and wrist are particularly bothering her Patient will follow-up after CT scan for results review and discussion of further treatment options if indicated Patient understands this and is amenable to this plan Orders: Orders CT wrist LT wo IV con Today M25.532 - Pain in left wrist Coding Level of Care Code Tele New Pt Level 3 (48284) Diagnoses Left wrist pain M25.532
== END 2025-02-23 16:05 | disposition home or self-care (01) ==
LOC: HO.HOS 15:07
PROVIDERS: PCP Internal Medicine
DX: M25.532 Pain in left wrist (principal)
CPT/HCPCS: 99203

== ENCOUNTER → 2025-02-23 15:06 | Outpatient (BNVA) | payer MEDICARE, SELFPAY | PROVIDERS: PCP Internal Medicine | DX: M25.532 Pain in left wrist (principal) | CPT/HCPCS: 99202 ==

== ENCOUNTER 2025-02-28 13:02 | Outpatient (REF) | payer MEDICARE, SELFPAY ==
[2025-02-28 16:43] LABS: Iron 32 mcg/dL (30-160); Percent Iron Saturation 8 % (15-50); Total Iron Binding Capacity 380 mcg/dL (228-428); Unsaturated Iron Binding 348 ug/dL
[2025-02-28 18:16] LABS: Folate 5.1 ng/mL (> or = 4.0); Vitamin B12 > 2000 pg/mL (200-900)
== END 2025-02-28 13:03 | disposition home or self-care (01) ==
LOC: HO.HMGCLDS 13:02
PROVIDERS: PCP Internal Medicine; Visit Provider Internal Medicine
DX: I10 Essential (primary) hypertension (principal); D64.9 Anemia, unspecified; E66.3 Overweight; M25.532 Pain in left wrist; Z98.890 Other specified postprocedural states; Z68.41 Body mass index [BMI] 40.0-44.9, adult
CPT/HCPCS: 36415; 82607; 82746; 83540; 99212

== ENCOUNTER 2025-02-28 13:02 | Outpatient (AMB) | payer MEDICARE, SELFPAY ==
--- NOTE | 2025-02-28 13:06 | MHC.PC.OV ---
Vital Signs 02/28/25 13:13 Height 5 ft 3 in Weight 228 lb BMI 40.4 BP 136/80 Blood Pressure Location Rt brachial Position Sitting Respiration 17 Pulse 72 Pulse Source Pulse Oximeter Temp 97.5 F Temp Source Oral Pulse Oximetry (%) 97 Oxygen Delivery Method Room Air Intake Visit Reasons: 8m follow up Intake Note: Pt is here today for a follow up visit. Allergies Seasonal Allergies Allergy (Mild, Verified 02/28/25 13:14) Sneezing, coughing Medication List - Last Reconciled 02/28/25 by Eloisa Valdes MD acetaminophen 650 mg (2 x 325 mg) PO Q6H PRN 30 days amlodipine 5 mg PO DAILY amlodipine 2.5 mg PO DAILY cholecalciferol (vitamin D3) (Vitamin D3) 50 mcg PO DAILY indapamide 1.25 mg PO QAM Tobacco use date assessed: 02/28/25 Fall risk assessment: No Falls in past year Last assessed Fall Risk: 02/28/25 Dental Screening Dental Screen Date: 06/30/24 HPI 8m follow up HPI Details Patient presents for the follow-up on hypertension controlled on current medications. She complains of chronic for few months left wrist pain at the base of the thumb. 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 She has been seen by Jose Luis ANTUNEZ and has CT of the wrist and EMG scheduled. [facility] Medical History (Updated 02/28/25 @ 15:34 by Eloisa Valdes MD) Left wrist pain Overweight Vitamin D deficiency Knee osteoarthritis Hypertension Carpal tunnel syndrome Surgical History (Updated 02/28/25 @ 15:30 by Eloisa Valdes MD) Hx of colonoscopy Hx of hysterectomy Status post carpal tunnel release of both wrists Hx of colonoscopy S/P right rotator cuff repair History of total right knee replacement Family History Father No problems noted. Mother Colon cancer Social History Household Members: None Household Members Other:: daughter lives in other side of duplex Housing: House Are you a primary critical care clinical nurse specialist to a significant other at home: No Do you presently have visiting nurse or other home services: No Patient Tobacco Use Status: Never used Tobacco e-Cigarette/Vaping Use: Never Used service: No Current occupational status: retired Cognitive needs: No Hearing needs: No Vision needs: Yes Questionnaire Thrive Questionnaire Date Thrive assessed: 02/28/25 I am a: Patient What is your living situation today?: I have a steady place to live Within the past 12 months, did the food you bought not last and you didn't have the money to get more?: Never true Within the past 12 months, did you worry whether your food would run out before you got money to buy more?: Never true Do you have trouble paying for medicines?: Yes Do you have trouble getting transportation to medical appointments?: No Do you have trouble paying your heating and electricity bill?: No Do you have trouble taking care of your child, family member or friend?: No Do you have trouble with day-to-day activities such as bathing, preparing meals, shopping, managing finances, etc.?: No Are you currently unemployed and looking for a job?: No Are you interested in more education?: No Please select the resources that you would like help with: Paying for medicine Currently or been in a relationship where the following occur: No concerns reported THRIVE Score: 0 AUDIT C Alcohol Use Questionnaire (AUDIT-C) 1. How often do you have a drink containing alcohol?: Monthly or less 2. How many drinks containing alcohol do you have on a typical day when you are drinking?: 1 or 2 3. How often do you have six or more drinks on one occasion?: Never Total Score: 1 CHICO-7 AMB Questionnaire CHICO-7 Date CHICO - 7 assessed: 06/30/24 Feeling nervous, anxious, or on edge: 0 = Not at all Not being able to stop or control worryin = Not at all Worrying too much about different things: 0 = Not at all Trouble relaxin = Not at all Being so restless that it is hard to sit still: 0 = Not at all Becoming easily annoyed or irritable: 0 = Not at all Feeling afraid as if something awful might happen: 0 = Not at all Total CHICO-7 score (0-4 normal; 5-9 mild; 10-14 moderate; 15-21 severe): 0 Source: Developed by Drs. Juan L. MonicaReva ponce, Jamarcus Coker and colleagues, with an educational josé from [employer]. Review of Systems Const All systems reviewed & are unremarkable except as noted in HPI and below Eyes Reports no additional complaints ENT Reports no additional complaints Card Reports no additional complaints Resp Reports no additional complaints GI Reports no additional complaints Reports no additional complaints Physical exam (Primary Care) Vital Signs: Last Vital Signs Temp 97.5 F 02/28/25 13:13 Pulse 72 02/28/25 13:13 Resp 17 02/28/25 13:13 BP 136/80 02/28/25 13:13 Pulse Ox 97 02/28/25 13:13 Oxygen Delivery Method Room Air 02/28/25 13:13 BMI result Body Mass Index 40.4 Tobacco/Smoking Status: Tobacco use Status Tobacco use date assessed 02/28/25 02/28/25 13:19 Patient Tobacco Use Status Never used Tobacco 02/28/25 13:06 e-Cigarette/Vaping Use Never Used 02/28/25 13:06 Thrive Assessment: Date of Thrive Assessment Date Thrive assessed 02/28/25 02/28/25 13:06 Currently or been in a relationship where the following occur: No concerns reported Const General: no acute distress HENMT Head: Yes normal to inspection Face and sinus: Yes normal facial exam Neck Neck: Yes supple Resp Effort & Inspection: normal respiratory effort Auscultation: clear to auscultation bilaterally Cardio Rhythm: regular rhythm Heart sounds: S1 normal heart sound present and S2 normal heart sound present GI Inspection: Yes normal to inspection Extrem Other: There is a decreased range of motion of the left and tenderness at the base of left thumb. There is no soft tissue swelling erythema or warmth Coding Level of Care Code Est Pt Level 4 (29048) Diagnoses Hypertension I10 Anemia D64.9 Overweight E66.3 Hx of colonoscopy Z98.890 Left wrist pain M25.532 Assessment & Plan Assessment & Plan (1) Hypertension: Code(s): I10 - Essential (primary) hypertension Category: Medical Plan: Continue amlodipine (2) Anemia: Code(s): D64.9 - Anemia, unspecified Category: Medical Plan: For borderline anemia check iron studies and B12 (3) Overweight: Code(s): E66.3 - Overweight Category: Medical Plan: Decrease caloric intake increasing physical activity discussed with the patient she is interested in trying GLP 1 agonist but is aware that Medicare does not cover GLP 1 agonist for weight loss (4) Hx of colonoscopy: Comment: 02/12 2 polyps, [facility], recheck 5 years Code(s): Z98.890 - Other specified postprocedural states Category: Surgical Plan: Up-to-date with colonoscopy (5) Left wrist pain: Comment: XR negative 12/2024, f/ [facility] ortho Code(s): M25.532 - Pain in left wrist Category: Medical Plan: Follow-up with ortho Orders: Orders IRON PROFILE Today D64.9 - Anemia, unspecified, I10 - Essential (primary) hypertension Vitamin B12 and Folate Today D64.9 - Anemia, unspecified, I10 - Essential (primary) hypertension Complete Blood Count Auto Diff 6 Months I10 - Essential (primary) hypertension, R73.9 - Hyperglycemia, unspecified, Z00.00 - Encounter for general adult medical examination without abnormal findings TSH reflex Free T4 6 Months I10 - Essential (primary) hypertension, R73.9 - Hyperglycemia, unspecified, Z00.00 - Encounter for general adult medical examination without abnormal findings Comprehensive Crum Lynne. Panel Fast 6 Months I10 - Essential (primary) hypertension, R73.9 - Hyperglycemia, unspecified, Z00.00 - Encounter for general adult medical examination without abnormal findings Lipid Panel 6 Months I10 - Essential (primary) hypertension, R73.9 - Hyperglycemia, unspecified, Z00.00 - Encounter for general adult medical examination without abnormal findings UA w Microscopic 6 Months I10 - Essential (primary) hypertension, R73.9 - Hyperglycemia, unspecified, Z00.00 - Encounter for general adult medical examination without abnormal findings Hemoglobin A1c 6 Months I10 - Essential (primary) hypertension, R73.9 - Hyperglycemia, unspecified, Z00.00 - Encounter for general adult medical examination without abnormal findings
[2025-02-28 13:13] VITALS: BP 136/80; PULSE 72; RESP 17; TEMP 36.4; O2SAT 97; BMI 40.4
== END 2025-02-28 15:36 | disposition home or self-care (01) ==
LOC: HO.HMCC 13:03
PROVIDERS: PCP Internal Medicine; Visit Provider Internal Medicine
DX: I10 Essential (primary) hypertension (principal); D64.9 Anemia, unspecified; E66.3 Overweight; Z98.890 Other specified postprocedural states; M25.532 Pain in left wrist

== ENCOUNTER 2025-03-04 12:52 | Outpatient (REF) | payer MEDICARE, SELFPAY ==
--- NOTE | 2025-03-04 12:56 | EMG_ITS ---
Chief complaint: 3 months of left wrist pain. Denies numbness. History of carpal tunnel surgery bilateral 40 years ago. Reason for referral: Evaluate for Carpal Tunnel Syndrome Referred by: Balbri ANTUNEZ Procedure done: Left upper extremity NCS/EMG Precautions and/or limitations: None The limb temperature was monitored continuously and remained between 32-36 degrees C during the performance of the NCS. Nerve Conduction Studies Anti Sensory Summary Table ?Stim Site NR Onset (ms) Norm Onset (ms) Peak (ms) Norm Peak (ms) O-P Amp (?V) Norm O-P Amp Site1 Site2 Delta-0 (ms) Dist (cm) Raúl (m/s) Norm Raúl (m/s) Left Median Anti Sensory (2nd Digit) Wrist ? 2.9 3.6 <3.6 12.3 >10 Wrist 2nd Digit 2.9 14.0 48 Left Radial Anti Sensory (Thumb) Forearm ? 1.8 2.2 <3.1 19.4 Forearm Thumb 1.8 0.0 Left Ulnar Anti Sensory (5th Digit) Wrist ? 3.1 3.5 <3.7 19.0 >15.0 Wrist 5th Digit 3.1 14.0 45 Motor Summary Table ?Stim Site NR Onset (ms) Norm Onset (ms) O-P Amp (mV) Norm O-P Amp iAmp (mV) Amp (1st) (%) Site1 Site2 Delta-0 (ms) Dist (cm) Raúl (m/s) Norm Raúl (m/s) Left Median Motor (Abd Poll Brev) Wrist ? 3.9 <3.9 9.0 >4.5 10.9 100.0 Elbow Wrist 3.4 18.0 53 >45 Elbow ? 7.3 9.6 12.0 106.7 Left Ulnar Motor (Abd Dig Minimi) Wrist ? 3.0 <3.0 5.7 >5 6.7 100.0 B Elbow Wrist 3.1 18.0 58 >45 B Elbow ? 6.1 4.6 5.7 80.7 A Elbow B Elbow 1.4 10.0 71 >45 A Elbow ? 7.5 4.8 6.0 84.2 EMG ?Side Muscle Nerve Root Ins Act Fibs Psw Amp Dur Poly Recrt Int Pat Comment Left 1stDorInt Ulnar C8-T1 Nml Nml Nml Nml Nml 0 Nml Complete Left FlexCarRad Median C6-7 Nml Nml Nml Nml Nml 0 Nml Complete Left Biceps Musculocut C5-6 Nml Nml Nml Nml Nml 0 Nml Complete Left Triceps Radial C6-7-8 Nml Nml Nml Nml Nml 0 Nml Complete Left Deltoid Axillary C5-6 Nml Nml Nml Nml Nml 0 Nml Complete FINDINGS: All motor and sensory nerves tested showed normal latencies, amplitudes and conduction velocities. Concentric needle EMG was performed in selected muscles of the lower extremity. Study did not reveal signs of electric abnormalities as shown in the table above. IMPRESSION: 1. This is a normal study. 2. There is no electrodiagnostic evidence for median neuropathy, ulnar neuropathy, brachial plexopathy, or cervical radiculopathy. Thank you for your kind referral. Belinda Castillo MD, MINGO Board Certified, [place] [employer] and Rehabilitation (ABPMR) Board Certified, [place] Board of Electrodiagnostic Medicine (ABEM) CODIN [id number] x 1 extremity MTDD
== END 2025-03-04 12:53 | disposition home or self-care (01) ==
LOC: HO.NEURO 12:52
PROVIDERS: PCP Internal Medicine
DX: R20.2 Paresthesia of skin (principal); R20.0 Anesthesia of skin; M25.532 Pain in left wrist; M79.642 Pain in left hand
CPT/HCPCS: 95886; 95909

== ENCOUNTER → 2025-03-04 12:56 | Outpatient (BNV) | payer MEDICARE, SELFPAY | PROVIDERS: PCP Internal Medicine; Visit Provider Physical Medicine & Rehabilitation | DX: R20.0 Anesthesia of skin (principal) | CPT/HCPCS: 95886; 95909 ==